=== PATIENT | female | born 1990 | race Caucasian/White ===

== ENCOUNTER 2016-06-06 05:59 | Emergency (ER) | payer OTHER ==
[~2016-06-06] VITALS: Ht 180.3 cm; Wt 104.8 kg
[~2016-06-06 05:59] MED LIST: DEPO150I IM; DICL75 PO; METH750T2 PO
[2016-06-06 06:04] VITALS: BP 128/85; PULSE 82; RESP 18; TEMP 99; O2SAT 100
[2016-06-06] MEDS ORDERED: HYDR-3533 PO (06:11)
[2016-06-06] MEDS ORDERED: AMOX500C PO (06:11)
--- NOTE | 2016-06-06 06:24 | PD ---
HPI Chief Complaint: Oral / Dental Pain or Problem Time Seen by Provider: 06:16 Travel History International Travel<30 days: No Contact w/Intl Traveler<30days: No Traveled to known affect area: No History of Present Illness HPI 25-year-old female presents to the emergency department by private transportation for evaluation of facial swelling and jaw pain. According the patient since approximately 1600 yesterday she started noticing some left mandibular dentition pain and swelling. Swelling has persisted and now is submandibular and moving towards the midline. Patient rates pain 6/10 in intensity. Patient has had no difficulty swallowing although does have jaw pain with attempted opening of the mouth. Patient denies any stridor or hoarseness. Patient's had no trauma or injury. No fever or chills. Patient is not diabetic. Last menstrual period was approximately one week ago; patient is 1 para 1; patient is not sexually active 8 months after from her spouse. Patient denies . Patient takes no medications on a regular basis and no prescription medications. PFSH Past Medical History Narrative Medical ; orthopedic injury; hand surgery; no tobacco use; nursing notes reviewed Medical History: Denies Significant Hx Musculoskeletal: Yes (LEFT TIB/FIB FX) Tetanus Vaccination: > 5 Years Influenza Vaccination: No ?: Not LMP: 05/18/16 : 2 Para: 1 Miscarriage: 1 Past Surgical History Other Surgery: Yes (LEFT HAND ) Social History Alcohol Use: No Tobacco Use: No Substance Use: No Allergies-Medications (Allergen,Severity, Reaction): Coded Allergies: No Known Allergies (Verified , 06/06/16) Reported Meds & Prescriptions Reported Meds & Active Scripts Active Reported Lortab (Hydrocodone-Acetaminophen) 5-325 Mg Tab 1 Tab PO ONCE PRN Amoxicillin 500 Mg Cap 500 Mg PO ONCE Review of Systems Except as stated in HPI: all other systems reviewed are Neg General / Constitutional: No: Fever HENT: Positive: Masses, Dental Difficulties, No: Congestion, Neck Stiffness, Neck Pain Cardiovascular: No: Chest Pain or Discomfort Respiratory: No: Shortness of Breath Gastrointestinal: No: Vomiting Genitourinary: No: Flank Pain Musculoskeletal: No: Myalgias, Arthralgias Skin: Positive Lumps (left face and submandibular), No Rash Neurologic: No: Weakness Psychiatric: No: Anxiety Hematologic/Lymphatic: No: Lymph Node Enlargement Physical Exam Narrative GENERAL: Well-developed well-nourished female in no acute distress no respiratory distress SKIN: Warm and dry. HEAD: Atraumatic. Normocephalic. EYES: Pupils equal and round. No scleral icterus. No injection or drainage. ENT: No nasal bleeding or discharge. Mucous membranes pink and moist. No trismus. Multiple dental caries, specifically affecting the #17,#18, and #19 dentition. Left mandible buccal gingival edema without fluctuance. Left submandibular soft tissue swelling with firmness and mild induration without redness warmth and does not cross midline. NECK: Trachea midline. No JVD. Supple no meningismus no nuchal rigidity CARDIOVASCULAR: Regular rate and rhythm. RESPIRATORY: No accessory muscle use. Clear to auscultation. Breath sounds equal bilaterally. NEUROLOGICAL: Awake and alert. No obvious cranial nerve deficits. Motor grossly within normal limits. Five out of 5 muscle strength in the arms and legs. Normal speech. PSYCHIATRIC: Appropriate mood and affect; insight and judgment normal. Data Data Last Documented VS Vital Signs Date Time Temp Pulse Resp B/P Pulse Ox O2 Delivery O2 Flow Rate FiO2 06/06/16 06:45 20 06/06/16 06:04 99.0 82 128/85 100 Orders Basic Metabolic Panel (Bmp) (06/06/16 06:16) Complete Blood Count With Diff (06/06/16 06:16) Blood Culture (06/06/16 06:16) Ct Soft Tiss Neck W Iv Cont (06/06/16 06:16) Iv Access Insert/Monitor (06/06/16 06:16) Clindamycin Inj (Cleocin Inj) (06/06/16 06:30) Sodium Chloride 0.9% Flush (Ns Flush) (06/06/16 06:30) Ketorolac Inj (Toradol Inj) (06/06/16 06:30) Labs Laboratory Tests Test 06/06/16 06:20 White Blood Count 12.7 TH/MM3 Red Blood Count 4.43 MIL/MM3 Hemoglobin 11.7 GM/DL Hematocrit 36.1 % Mean Corpuscular Volume 81.6 FL Mean Corpuscular Hemoglobin 26.4 PG Mean Corpuscular Hemoglobin 32.3 % Concent Red Cell Distribution Width 14.9 % Platelet Count 270 TH/MM3 Mean Platelet Volume 8.6 FL Neutrophils (%) (Auto) 71.6 % Lymphocytes (%) (Auto) 15.6 % Monocytes (%) (Auto) 10.2 % Eosinophils (%) (Auto) 0.5 % Basophils (%) (Auto) 2.1 % Neutrophils # (Auto) 9.0 TH/MM3 Lymphocytes # (Auto) 2.0 TH/MM3 Monocytes # (Auto) 1.3 TH/MM3 Eosinophils # (Auto) 0.1 TH/MM3 Basophils # (Auto) 0.3 TH/MM3 CBC Comment DIFF FINAL Differential Comment Sodium Level 141 MEQ/L Potassium Level 3.7 MEQ/L Chloride Level 107 MEQ/L Carbon Dioxide Level 24.8 MEQ/L Anion Gap 9 MEQ/L Blood Urea Nitrogen 5 MG/DL Creatinine 0.60 MG/DL Estimat Glomerular Filtration 122 ML/MIN Rate Random Glucose 95 MG/DL Calcium Level 8.7 MG/DL MDM Medical Decision Making Medical Screen Exam Complete: Yes Emergency Medical Condition: Yes Medical Record Reviewed: Yes Differential Diagnosis Dental caries, dental abscess, submandibular abscess, cellulitis, sialadenitis, dental fracture, mass Narrative Course IV access obtained specimens collected and sent for resulting patient administered clindamycin 900 mg IV, Toradol 30 mg IV; CT soft tissue neck with IV contrast ordered to evaluate for abscess. @7:15 AM care signed over to oncoming physician Dr. Bazan for follow-up of pending CT and patient disposition Diagnosis Primary Impression: Dental abscess Carol Tyson MD Jun 06, 2016 06:24
[2016-06-06] MEDS ORDERED: KETOROLAC TROMETHAMINE 30 MG/ML (IVP) VIAL IV PUSH ONE (06:30)
[2016-06-06] MEDS ORDERED: SODIUM CHLORIDE 0.9% FLUSH 5 ML FLUSH IVF PRN (06:30)
[2016-06-06] MEDS ORDERED: CLINDAMYCIN INJ 900 MG in SODIUM CHLORIDE 0.9% INJ 100 ML IV ONE (06:30)
[2016-06-06 06:39] LABS: BASOPHIL # 0.3 TH/MM3 (0-0.2); BASOPHIL % 2.1 % (0.0-2.0); EOSINOPHIL # 0.1 TH/MM3 (0-0.4); EOSINOPHIL % 0.5 % (0.0-4.0); HEMATOCRIT 36.1 % (35.0-46.0); LYMPH % 15.6 % (9.0-44.0); MEAN CELL VOLUME 81.6 FL (80.0-100.0); MEAN CORPUSCULAR HEMOGLOBIN 26.4 PG (27.0-34.0); MEAN CORPUSCULAR HGB CONC 32.3 % (32.0-36.0); MONO % 10.2 % (0.0-8.0); NEUT % 71.6 % (16.0-70.0); PLATELET COUNT 270 TH/MM3 (150-450); RED BLOOD COUNT 4.43 MIL/MM3 (4.00-5.30); RED CELL DISTRIBUTION WIDTH 14.9 % (11.6-17.2); WHITE BLOOD COUNT 12.7 TH/MM3 (4.0-11.0)
[2016-06-06 06:41] LABS: POTASSIUM 3.7 MEQ/L (3.5-5.1)
[2016-06-06 06:42] LABS: HEMO FLAGS DIFF FINAL
[2016-06-06 06:44] LABS: BICARBONATE 24.8 MEQ/L (21.0-32.0)
[2016-06-06] MEDS ORDERED: IOHEXOL 350 MG/ML 10 ML VIAL (for RAD DIAG) IV ONE (07:28)
--- NOTE | 2016-06-06 07:42 | RADHPO ---
EXAM DATE/TIME: 06/06/2016 07:15 [facility] COMPARISON: No previous studies available for comparison. INDICATIONS : Left sided submandibular swlling and pain. IV CONTRAST: 69 cc Omnipaque 350 (iohexol) IV RADIATION DOSE: 14.73 CTDIvol (mGy) MEDICAL HISTORY : None SURGICAL HISTORY : None. ENCOUNTER: Initial ACUITY: 2 days PAIN SCALE: 7/10 LOCATION: Left neck TECHNIQUE: Volumetric scanning of the neck was performed. Using automated exposure control and adjustment of th e mA and/or kV according to patient size, radiation dose was kept as low as reasonably achievable to obtain optimal diagnostic quality images. FINDINGS: NASOPHARYNX: The nasopharyngeal airway has a normal configuration. No mucosal thickening or mass is seen. OROPHARYNX: The intrinsic muscles of the tongue are symmetric. The tonsillar pillars are intact. The prevertebr al soft tissues are not thickened. LARYNX: The supraglottic, glottic, and infraglottic structures are intact. PARAPHARYNGEAL: The parapharyngeal space is intact. SALIVARY GLANDS: Left submandibular gland is mildly prominent. The parotid and right submandibular glands are intact. LYMPH NODES: No necrotic-appearing nodes. There are some scattered lymph nodes many which are small in size. The l argest in the left submandibular region measures 1.7 x 1.4 cm. On the right measures 1.5 x 1.3 cm THYROID: Homogeneous enhancement without evidence of nodule. BONES: Unremarkable. OTHER: There are some inflammatory changes along the left submandibular soft tissues. Left submandibular gla nd is mildly prominent in size. No stones are seen. There are some mildly prominent left-sided subman dibular lymph nodes likely reactive. No abscess identified. CONCLUSION: Left-sided facial/submandibular soft tissue swelling with some reactive borderline prominent lymph no denice. The left submandibular gland is mildly prominent. No abscess. No stones are seen. Javon Patrick MD on June 06, 2016 at 7:35 Board Certified Radiologist. This report was verified electronically.
[2016-06-06] MEDS ORDERED: CLIN1CAP5 PO (07:55)
--- NOTE | 2016-06-06 08:03 | PD ---
Data Data Last Documented VS Vital Signs Date Time Temp Pulse Resp B/P Pulse Ox O2 Delivery O2 Flow Rate FiO2 06/06/16 06:45 20 06/06/16 06:04 99.0 82 128/85 100 Orders Basic Metabolic Panel (Bmp) (06/06/16 06:16) Complete Blood Count With Diff (06/06/16 06:16) Blood Culture (06/06/16 06:16) Ct Soft Tiss Neck W Iv Cont (06/06/16 06:16) Iv Access Insert/Monitor (06/06/16 06:16) Clindamycin Inj (Cleocin Inj) (06/06/16 06:30) Sodium Chloride 0.9% Flush (Ns Flush) (06/06/16 06:30) Ketorolac Inj (Toradol Inj) (06/06/16 06:30) Iohexol 350 Inj (Omnipaque 350 Inj) (06/06/16 07:28) Labs Laboratory Tests Test 06/06/16 06:20 White Blood Count 12.7 TH/MM3 Red Blood Count 4.43 MIL/MM3 Hemoglobin 11.7 GM/DL Hematocrit 36.1 % Mean Corpuscular Volume 81.6 FL Mean Corpuscular Hemoglobin 26.4 PG Mean Corpuscular Hemoglobin 32.3 % Concent Red Cell Distribution Width 14.9 % Platelet Count 270 TH/MM3 Mean Platelet Volume 8.6 FL Neutrophils (%) (Auto) 71.6 % Lymphocytes (%) (Auto) 15.6 % Monocytes (%) (Auto) 10.2 % Eosinophils (%) (Auto) 0.5 % Basophils (%) (Auto) 2.1 % Neutrophils # (Auto) 9.0 TH/MM3 Lymphocytes # (Auto) 2.0 TH/MM3 Monocytes # (Auto) 1.3 TH/MM3 Eosinophils # (Auto) 0.1 TH/MM3 Basophils # (Auto) 0.3 TH/MM3 CBC Comment DIFF FINAL Differential Comment Sodium Level 141 MEQ/L Potassium Level 3.7 MEQ/L Chloride Level 107 MEQ/L Carbon Dioxide Level 24.8 MEQ/L Anion Gap 9 MEQ/L Blood Urea Nitrogen 5 MG/DL Creatinine 0.60 MG/DL Estimat Glomerular Filtration 122 ML/MIN Rate Random Glucose 95 MG/DL Calcium Level 8.7 MG/DL [facility] Supervised Visit with EVI: No Differential Diagnosis Dental infection, abscess, pharyngitis Narrative Course Case checked out to me by Dr. Tyson at 7 AM I have reviewed the entirety of the workup. She has white count 12 but otherwise normal metabolic profile. I reviewed the CT results which show no evidence of abscess or anything dangerous. No fluid collection to drain. She has some soft tissue swelling in the left mandible consistent with dental origin infection. I prescribed some clindamycin Recommend dental follow-up and primary care follow-up Diagnosis Primary Impression: Dental abscess Additional Instruction: The patient was advised to follow up with their physician and dentist and return if they worsen. Med/Other Pt SpecificInfo: Prescription(s) given Scripts Clindamycin 150 Mg Oek452 Mg PO Q8HR 7 Days Ref 0 Prov:Nadir Bazan MD 06/06/16 Disposition: 01 DISCHARGE HOME Condition: Stable Nadir Bazan MD Jun 06, 2016 08:03
[2016-06-06 08:10] VITALS: BP 104/68; PULSE 79; RESP 16; O2SAT 96
== END 2016-06-06 08:10 | disposition home or self-care (01) ==
LOC: PHED 05:59
DX: K04.7 Periapical abscess without sinus (principal); R22.0 Localized swelling, mass and lump, head; K08.89 Other specified disorders of teeth and supporting structures; Z87.39 Personal history of other diseases of the musculoskeletal system and connective tissue
CPT/HCPCS: 70491; 80048; 85025; 87040; 96365; 96375; 99284; J1885; Q9967

== ENCOUNTER 2016-06-06 21:39 | Inpatient (IN) | payer SELFPAY ==
[~2016-06-06] VITALS: Ht 180.3 cm; Wt 103.1 kg
[~2016-06-06 21:39] MED LIST changes: +AMOX500C PO; +CLIN1CAP5 PO; +HYDR-3533 PO
[2016-06-06 22:02] VITALS: BP 114/83; PULSE 102; RESP 18; TEMP 99.3; O2SAT 98
--- NOTE | 2016-06-06 22:27 | PD ---
HPI Chief Complaint: Oral / Dental Pain or Problem Time Seen by Provider: 22:21 Travel History International Travel<30 days: No Contact w/Intl Traveler<30days: No Traveled to known affect area: No History of Present Illness HPI 25-year-old female presents to the emergency department by private transportation for complaint of worsening left jaw and submandibular soft tissue swelling. Patient was noted to have left jaw pain and dental pain with some mild facial swelling since Monday evening around 4 PM. Patient noted progression of the soft tissue swelling was seen in the emergency department around 6 AM this morning which time her white count was 12,[address] soft tissue of the neck did not show any focal abscess. Patient received IV clindamycin and was discharged with prescription for clindamycin. Patient reports subjective fever and chills. Patient notes that she is having increasing swelling that seems to be extending to the midline and further down the anterior neck. With pain on coughing and closing of the mouth. No issue of difficulty with breathing or swallowing. No drooling. Patient reports pain 6-7/10 in intensity. Again patient denies and denies other concerns or complaints. PFSH Past Medical History Narrative Medical Orthopedic injuries with hand surgery; no tobacco use; nursing notes reviewed Musculoskeletal: Yes (LEFT TIB/FIB FX) Tetanus Vaccination: Unknown Influenza Vaccination: No ?: Not LMP: 05-18-16 : 2 Para: 1 Miscarriage: 1 Past Surgical History Other Surgery: Yes (LEFT HAND ) Social History Alcohol Use: No Tobacco Use: No Substance Use: No Allergies-Medications (Allergen,Severity, Reaction): Coded Allergies: No Known Allergies (Verified , 06/06/16) Reported Meds & Prescriptions Reported Meds & Active Scripts Active Clindamycin (Clindamycin HCl) 150 Mg Cap 300 Mg PO Q8HR 7 Days Review of Systems Except as stated in HPI: all other systems reviewed are Neg General / Constitutional: Positive: Fever (subjective), Chills HENT: Positive: Congestion, Neck Pain, Masses, Dental Difficulties Respiratory: No: Cough, Shortness of Breath Gastrointestinal: No: Vomiting Genitourinary: No: Flank Pain Musculoskeletal: No: Myalgias, Arthralgias Skin: No Rash Neurologic: No: Weakness Psychiatric: Positive: Anxiety Hematologic/Lymphatic: Positive: Lymph Node Enlargement Physical Exam Narrative GENERAL: Well-developed well-nourished female in no acute distress no respiratory distress no drooling no stridor or hoarseness. SKIN: Warm and dry. HEAD: Normocephalic. EYES: No scleral icterus. No injection or drainage. ENT mucous membranes moist airway is patent mild trismus soft tissue swelling of the buccal gingiva along the #17, #18 and #19 dentition; soft tissue swelling is noted to the left cheek and submandibular soft tissue with tenderness and firmness to palpation without fluctuance no midline involvement. NECK: Supple, trachea midline. No JVD or lymphadenopathy. CARDIOVASCULAR: Regular rate and rhythm without murmurs, gallops, or rubs. RESPIRATORY: Breath sounds equal bilaterally. No accessory muscle use. GASTROINTESTINAL: Abdomen soft, non-tender, nondistended. MUSCULOSKELETAL: No cyanosis, or edema. BACK: Nontender without obvious deformity. No CVA tenderness. Data Data Last Documented VS Vital Signs Date Time Temp Pulse Resp B/P Pulse Ox O2 Delivery O2 Flow Rate FiO2 06/06/16 23:00 77 18 100 Room Air 06/06/16 22:02 99.3 114/83 Orders Basic Metabolic Panel (Bmp) (06/06/16 22:21) Complete Blood Count With Diff (06/06/16 22:21) Blood Culture (06/06/16 22:21) Iv Access Insert/Monitor (06/06/16 22:21) Clindamycin Inj (Cleocin Inj) (06/06/16 22:30) Sodium Chloride 0.9% Flush (Ns Flush) (06/06/16 22:30) Ketorolac Inj (Toradol Inj) (06/06/16 22:30) Potassium Chloride (Kcl) (06/06/16 23:30) Admit Order (Ed Use Only) (06/06/16 ) ^ Saline Lock (06/06/16 23:38) Resp Oxygen Stephen C Titrat 1-4 L (06/06/16 ) ^ Notify Dr: Other (06/06/16 23:38) Sodium Chloride 0.9% Flush (Ns Flush) (06/07/16 09:00) Sodium Chloride 0.9% Flush (Ns Flush) (06/06/16 23:45) Dexamethasone Inj (Decadron Inj) (06/06/16 23:45) Admit To Inpatient (06/06/16 ) Vital Signs (Adult) Q4H (06/06/16 23:37) Activity Oob Ad Essence (06/06/16 23:37) [employer] / Telemetry .CONTINUOUS (06/06/16 23:37) Diet Npo (06/07/16 Breakfast) Sodium Chlor 0.9% 1000 Ml Inj (Ns 1000 M (06/06/16 23:37) Sodium Chloride 0.9% Flush (Ns Flush) (06/06/16 23:45) Sodium Chloride 0.9% Flush (Ns Flush) (06/07/16 09:00) Ondansetron Inj (Zofran Inj) (06/06/16 23:45) Basic Metabolic Panel (Bmp) (06/07/16 06:00) Complete Blood Count With Diff (06/07/16 06:00) Case Management Consult (06/06/16 23:37) Scd Bilateral/Knee High ROSA MARIA.BID (06/06/16 23:37) Naloxone Inj (Narcan Inj) (06/06/16 23:45) Inpatient Certification (06/06/16 ) Consult Oral, Facial Surgery (06/06/16 ) Dexamethasone Inj (Decadron Inj) (06/07/16 06:00) Pantoprazole Inj (Protonix Inj) (06/06/16 23:45) Labs Laboratory Tests Test 06/06/16 22:40 White Blood Count 12.9 TH/MM3 Red Blood Count 4.60 MIL/MM3 Hemoglobin 12.5 GM/DL Hematocrit 37.2 % Mean Corpuscular Volume 80.9 FL Mean Corpuscular Hemoglobin 27.1 PG Mean Corpuscular Hemoglobin 33.5 % Concent Red Cell Distribution Width 13.7 % Platelet Count 275 TH/MM3 Mean Platelet Volume 8.5 FL Neutrophils (%) (Auto) 75.1 % Lymphocytes (%) (Auto) 14.9 % Monocytes (%) (Auto) 8.5 % Eosinophils (%) (Auto) 0.1 % Basophils (%) (Auto) 1.4 % Neutrophils # (Auto) 9.7 TH/MM3 Lymphocytes # (Auto) 1.9 TH/MM3 Monocytes # (Auto) 1.1 TH/MM3 Eosinophils # (Auto) 0.0 TH/MM3 Basophils # (Auto) 0.2 TH/MM3 CBC Comment DIFF FINAL Differential Comment Sodium Level 140 MEQ/L Potassium Level 3.3 MEQ/L Chloride Level 105 MEQ/L Carbon Dioxide Level 25.9 MEQ/L Anion Gap 9 MEQ/L Blood Urea Nitrogen 4 MG/DL Creatinine 0.61 MG/DL Estimat Glomerular Filtration 120 ML/MIN Rate Random Glucose 89 MG/DL Calcium Level 8.9 MG/DL MDM Medical Decision Making Medical Screen Exam Complete: Yes Emergency Medical Condition: Yes Medical Record Reviewed: Yes Interpretation(s) Vital Signs Date Time Temp Pulse Resp B/P Pulse Ox O2 Delivery O2 Flow Rate FiO2 06/06/16 22:02 99.3 102 18 114/83 98 CBC & BMP Diagram 06/06/16 22:40 Differential Diagnosis Dental abscess, cellulitis, sialadenitis Narrative Course IV access obtained specimens collected and sent for resulting IV clindamycin administered CBC was automated differential total white cell count essentially unchanged patient noted to have mild hypokalemia patient's case discussed with on-call craniofacial surgeon Dr. Ely who recommends patient to be transferred to [facility] ongoing IV antibiotics with plan for surgical intervention of dental/submandibular abscess in a.m.; case discussed with on-call medicine physician will accept in transfer of care for admission. Physician Communication Physician Communication call placed to Dr Sullivan ---admit to [facility] to [facility] --plan surgical intervention in am; discussed with Dr Herron --will accept for [facility] adm. Diagnosis Primary Impression: Dental abscess Carol Tyson MD Jun 06, 2016 22:27
[2016-06-06] MEDS ORDERED: SODIUM CHLORIDE 0.9% FLUSH 5 ML FLUSH IVF PRN ×2 (22:30→23:45)
[2016-06-06] MEDS ORDERED: CLINDAMYCIN INJ 900 MG in SODIUM CHLORIDE 0.9% INJ 100 ML IV ONE (22:30)
[2016-06-06] MEDS ORDERED: KETOROLAC TROMETHAMINE 30 MG/ML (IVP) VIAL IV PUSH ONE (22:30)
[2016-06-06 22:56] LABS: AUTOMATED NEUTROPHIL # 9.7 TH/MM3 (1.8-7.7); BASOPHIL # 0.2 TH/MM3 (0-0.2); BASOPHIL % 1.4 % (0.0-2.0); EOSINOPHIL % 0.1 % (0.0-4.0); HEMATOCRIT 37.2 % (35.0-46.0); HEMO FLAGS DIFF FINAL; LYMPH % 14.9 % (9.0-44.0); LYMPHOCYTE # 1.9 TH/MM3 (1.0-4.8); MEAN CELL VOLUME 80.9 FL (80.0-100.0); MEAN CORPUSCULAR HEMOGLOBIN 27.1 PG (27.0-34.0); MEAN CORPUSCULAR HGB CONC 33.5 % (32.0-36.0); MONO % 8.5 % (0.0-8.0); NEUT % 75.1 % (16.0-70.0); PLATELET COUNT 275 TH/MM3 (150-450); RED CELL DISTRIBUTION WIDTH 13.7 % (11.6-17.2); WHITE BLOOD COUNT 12.9 TH/MM3 (4.0-11.0)
[2016-06-06 23:00] VITALS: PULSE 77; RESP 18; O2SAT 100
[2016-06-06 23:07] LABS: POTASSIUM 3.3 MEQ/L (3.5-5.1)
[2016-06-06 23:11] LABS: BICARBONATE 25.9 MEQ/L (21.0-32.0)
[2016-06-06] MEDS ORDERED: POTASSIUM CHLORIDE 20 MEQ CONTROLLED RELEASE TAB PO ONE (23:30)
[2016-06-06 23:40] VITALS: BP 116/72; PULSE 79; RESP 18; O2SAT 98
[2016-06-06] MEDS ORDERED: NALOXONE HCL 0.4 MG/ML AMP IV PRN (23:45)
[2016-06-06] MEDS ORDERED: ONDANSETRON HCL 4 MG/2 ML VIAL IVP PRN (23:45)
[2016-06-06] MEDS ORDERED: DEXAMETHASONE SOD PHOS 4 MG/ML VIAL IV PUSH ONE (23:45)
[2016-06-06] MEDS ORDERED: SODIUM CHLORIDE 0.9% FLUSH 5 ML FLUSH FLUSH PRN (23:45)
[2016-06-06] MEDS ORDERED: MORPHINE SULFATE 4 MG/ML INJ IV PUSH PRN (23:45)
[2016-06-07] VITALS (8 sets, daily range): BP systolic 105–132; BP diastolic 61–93; PULSE 70–94; RESP 16–20; TEMP 97.5–98.2; O2SAT 96–99
[2016-06-07] MEDS: PANTOPRAZOLE SODIUM 40 MG VIAL IV PUSH SCH ×2 (00:05→09:22)
[2016-06-07] MEDS: SODIUM CHLOR 0.9% 1000 ML INJ 1,000 ML IV SCH ×2 (00:06→04:46)
[2016-06-07] MEDS ORDERED: KETOROLAC TROMETHAMINE 30 MG/ML (IVP) VIAL IV PUSH PRN (02:00)
[2016-06-07] MEDS: DEXAMETHASONE SOD PHOS 4 MG/ML VIAL IV PUSH SCH ×2 (04:46→12:22)
[2016-06-07] MEDS: CLINDAMYCIN INJ 900 MG in SODIUM CHLORIDE 0.9% INJ 100 ML IV SCH ×2 (06:00→12:22)
[2016-06-07] MEDS: NS + KCL 20 MEQ INJ 1,000 ML IV SCH ×2 (07:45→19:45)
--- NOTE | 2016-06-07 08:10 | MB ---
cc: MONA SULLIVAN DMD DATE OF CONSULTATION June 07, 2016 REASON FOR CONSULTATION Dental pain/submandibular swelling. HISTORY OF PRESENT ILLNESS This is a 25-year-old female who for the last several days had been having pain in the left lower posterior molars. Then on Monday she began to have swelling in her face and into her neck. She came to the hospital and was discharged on clindamycin, was given IV clindamycin yesterday but then it began to get worse and so she came back to the ER yesterday evening. I have seen and examined this patient. She is alert, awake and oriented x 3, in no acute distress. Denies any fever, chills, nausea, vomiting, any shortness of breath or any difficulty breathing or any difficulty swallowing, but she does report painful swallowing and tender to touch. The patient has a private dentist but has not seen for awhile. PAST MEDICAL HISTORY Denied. ALLERGIES Denied. PAST SURGICAL HISTORY She reports left hand surgery. SOCIAL HISTORY Denies any alcohol, any tobacco or illicit drug use. EXAMINATION She has got a swelling on the left submandibular region. It is tender to palpation. Trachea is midline. No erythema that is noted. Cannot palpate a collection but it is swollen and tender to palpation. Intraorally has limited opening secondary to pain. There is decay noted on tooth number 18 and 19. 18 is the worst with a lot of broken tooth area that is noted. No gross elevation of floor of the mouth on the left side but there is tenderness to palpation in the floor of the mouth on the left side. No deviation of the uvula. No active pus that is noted at this time. She is sensitive to palpation on tooth #18 and 19. [address] STUD[address] CT scan of the soft tissue of the neck shows edema in the left submandibular region. Lymph node enlargements also noted bilaterally. I do not see any gross collection that is noted. Also appears to have showed decayed tooth 18 with a periapical radiolucency of #18. VITALS: Temperature 97.5, pulse is 70, respirations 16, blood pressure is 105/61, oxygen saturation 99%. LABORATORY DATA White count is 12.9, H&H is 12.5 and 37.2 with a platelets of 275. IMPRESSION AND PLAN This is a 25-year-old female with a longstanding history of decayed teeth, pain on the left mandibular region, other generalized decayed teeth noted also. Now presents with a left submandibular space infection, left facial edema, pain on tooth #18 and 19. Cellulitis. Appears to be secondary to otogenic regions. We will plan to take the patient to the main operating room for extraction of tooth #18 and 19 and any other necessary teeth, examination under anesthesia, I&D of the left submandibular space infection/cellulitis. The benefits, risks and indication of the procedure, procedure in detail and the options of no treatment were all discussed with this patient. The risks were not limited to any postop pain, infection, bleeding, damage to the adjacent teeth, soft tissue, hard tissue anesthesia, complications, numbness, recurrence of infection. All questions and concerns were addressed. Mona Sullivan DMD RRT/ANDERSON /7:44 AM /8:01 AM
[2016-06-07] MEDS: SODIUM CHLORIDE 0.9% FLUSH 5 ML FLUSH FLUSH SCH (08:19)
[2016-06-07] MEDS ORDERED: SODIUM CHLORIDE 0.9% FLUSH 5 ML FLUSH IVF SCH (09:00)
--- NOTE | 2016-06-07 09:59 | HHI.HP ---
[facility] No Primary Care Physician Admission Diagnosis (L) Dental/submandibular abscess Diagnoses: Chief Complaint: Tooth infection Travel History International Travel<30 Days: No Contact w/Intl Traveler <30 Da: No Traveled to Known Affected Are: No History of Present Illness 25-year-old female with no past medical history who presented with facial swelling. The patient states on Monday she began having left lower jaw swelling. The swelling continued to get worse, so she went to the ED yesterday morning for evaluation. She was prescribed clindamycin and recommended to follow-up with a dentist and was discharged. She states that she went home, and the swelling continued to get worse. She began having difficulty swallowing and problems breathing, so she presented back to the emergency department. Maxillofacial surgery was consulted and medicine was asked for admission. The patient denies any fevers or chills. Does have pain in the area of swelling. She states that he isn't having pain in her teeth since last fall, was supposed to have been removed, but the pain improved and she got busy and did not get them removed. Review of Systems Except as stated in HPI: all other systems reviewed are Neg Past Family Social History Past Medical History None Past Surgical History Left hand surgery Reported Medications None normally Allergies: Coded Allergies: No Known Allergies (Verified , 06/06/16) Active Ordered Medications Current Medications Medications (Trade) Dose Ordered Sig/Juanito Route Start Time Stop Time Status Last Admin (NS Flush) 2 ml UNSCH PRN FLUSH 06/06/16 23:45 (NS Flush) 2 ml BID FLUSH 06/07/16 09:00 (Zofran Inj) 4 mg Q6H PRN IVP 06/06/16 23:45 (Narcan Inj) 0.4 mg UNSCH PRN IV 06/06/16 23:45 (Decadron Inj) 4 mg Q6HR IV PUSH 06/07/16 06:00 06/07/16 04:46 Pantoprazole Sodium 40 mg 40 mg DAILY IV PUSH 06/06/16 23:45 06/07/16 09:22 (Cleocin Inj/NS Inj) 106 ml @ 212 mls/hr Q6HR IV 06/07/16 06:00 06/07/16 06:00 Ketorolac Tromethamine 15 mg 15 mg Q6H PRN IV PUSH 06/07/16 02:00 06/12/16 01:59 06/07/16 02:04 (NS + KCl 20 Meq Inj) 1,000 ml @ 100 mls/hr Q10H IV 06/07/16 07:45 06/07/16 07:45 Family History Mother has high blood pressure Maternal grandmother has heart problems Social History Denies alcohol, tobacco, or drug use Physical Exam Vital Signs Vital Signs Date Time Temp Pulse Resp B/P Pulse Ox O2 Delivery O2 Flow Rate FiO2 06/07/16 08:09 98.2 77 20 126/81 96 06/07/16 05:20 70 06/07/16 04:51 97.5 79 16 105/61 99 06/07/16 04:21 78 16 132/68 97 06/07/16 03:04 18 06/07/16 03:01 99 06/07/16 00:09 18 06/06/16 23:40 79 18 116/72 98 Room Air 06/06/16 23:00 77 18 100 Room Air 06/06/16 22:02 99.3 102 18 114/83 98 Physical Exam GENERAL: Well-developed well-nourished. In no acute distress. SKIN: Warm and dry. No lesions noted. HEENT: Normocephalic. Pupils equal and round. Left lower jaw and neck swelling , TTP. 2 left lower jaw posterior molars with lateral purulent drainage. Airway patent. CARDIOVASCULAR: Regular rate and rhythm. No murmur appreciated. RESPIRATORY: No accessory muscle use. Clear to auscultation. Breath sounds equal bilaterally. GASTROINTESTINAL: Abdomen soft, non-tender, nondistended. Bowel sounds x4. MUSCULOSKELETAL: No obvious deformities. No clubbing or cyanosis. No edema. NEUROLOGICAL: Awake and alert. No focal neurological deficits. Moves upper and lower extremities spontaneously. Normal speech. PSYCHIATRIC: Appropriate mood and affect; insight and judgment normal. Laboratory Laboratory Tests Test 06/06/16 22:40 White Blood Count 12.9 Red Blood Count 4.60 Hemoglobin 12.5 Hematocrit 37.2 Mean Corpuscular Volume 80.9 Mean Corpuscular Hemoglobin 27.1 Mean Corpuscular Hemoglobin 33.5 Concent Red Cell Distribution Width 13.7 Platelet Count 275 Mean Platelet Volume 8.5 Neutrophils (%) (Auto) 75.1 Lymphocytes (%) (Auto) 14.9 Monocytes (%) (Auto) 8.5 Eosinophils (%) (Auto) 0.1 Basophils (%) (Auto) 1.4 Neutrophils # (Auto) 9.7 Lymphocytes # (Auto) 1.9 Monocytes # (Auto) 1.1 Eosinophils # (Auto) 0.0 Basophils # (Auto) 0.2 CBC Comment DIFF FINAL Differential Comment Sodium Level 140 Potassium Level 3.3 Chloride Level 105 Carbon Dioxide Level 25.9 Anion Gap 9 Blood Urea Nitrogen 4 Creatinine 0.61 Estimat Glomerular Filtration 120 Rate Random Glucose 89 Calcium Level 8.9 Date/Time Procedure Status Source Growth 06/06/16 22:48 Aerobic Blood Culture Received Blood Peripheral Pending 06/06/16 22:48 Anaerobic Blood Culture Received Blood Peripheral Pending Result Diagram: 06/06/16 2240 06/06/16 2240 Assessment and Plan Problem List: (1) Dental abscess ICD Code: K04.7 Status: Acute Assessment and Plan 25-year-old female here with dental infection Facial cellulitis/dental abscess: Neck CT 06/06/16 showed left-sided facial submandibular soft tissue swelling with some reactive borderline prominent lymph nodes, no abscess was seen at that time. WBC 12 K and Tmax 99.3. Continue IV clindamycin. OMF surgery consulted, plan for dental extraction today. Continue IV Decadron for now for swelling. IV Toradol as needed for pain. IVF. Hypokalemia: Potassium 3.3. Given oral potassium in the ED. Potassium added to IVF. Monitor. DVT prophylaxis: SCDs Written by Juan Francisco De Jesus, acting as scribe for Dr. Mcgregor on 06/07/16 at 09:59. The documentation accurately reflects the work performed [id number] by me on at [id number]. Discussed Condition With Patient Juan Francisco De Jesus Jun 07, 2016 9:59 am Minnie Mcgregor DO Jun 07, 2016 4:45 pm
[2016-06-07 12:42] LABS: AUTOMATED NEUTROPHIL # 10.4 TH/MM3 (1.8-7.7); BASOPHIL % 0.2 % (0.0-2.0); HEMATOCRIT 37.6 % (35.0-46.0); HEMO FLAGS DIFF FINAL; LYMPHOCYTE # 0.7 TH/MM3 (1.0-4.8); MEAN CELL VOLUME 82.2 FL (80.0-100.0); MEAN CORPUSCULAR HEMOGLOBIN 26.7 PG (27.0-34.0); MEAN CORPUSCULAR HGB CONC 32.5 % (32.0-36.0); MONO % 2.9 % (0.0-8.0); NEUT % 90.9 % (16.0-70.0); PLATELET COUNT 256 TH/MM3 (150-450); RED BLOOD COUNT 4.57 MIL/MM3 (4.00-5.30); RED CELL DISTRIBUTION WIDTH 15.1 % (11.6-17.2); WHITE BLOOD COUNT 11.4 TH/MM3 (4.0-11.0)
[2016-06-07 13:10] LABS: BICARBONATE 24.7 MEQ/L (21.0-32.0); POTASSIUM 3.8 MEQ/L (3.5-5.1)
[2016-06-07] MEDS ORDERED: KETOROLAC TROMETHAMINE 60 MG/2 ML (IM) VIAL IM ONE (13:18)
[2016-06-07] MEDS ORDERED: ONDANSETRON HCL 4 MG/2 ML VIAL IV PUSH ONE (13:18)
[2016-06-07] MEDS ORDERED: NEOSTIGMINE 3 MG/3 ML SYR IV ONE (13:18)
[2016-06-07] MEDS ORDERED: PROPOFOL 200 MG/20 ML AMP IV ONE (13:18)
[2016-06-07] MEDS ORDERED: MICROFIBRILLAR COLLAGEN HEMOSTAT 1 GM PKT ONE (15:52)
[2016-06-07] MEDS ORDERED: LIDOCAINE 1%/EPINEPHrine 1:100,000 SOLN 30 ML VIAL ONE (15:52)
[2016-06-07] MEDS ORDERED: CHLORHEXIDINE GLUCONATE 0.12% 30 ML CUP ONE ×2 (15:52→16:57)
[2016-06-07] MEDS ORDERED: BACITRACIN TOP OINT 15 GM TUBE ONE (15:53)
[2016-06-07] MEDS ORDERED: LIDOCAINE 2%/EPINEPHrine 1:100,000 30ML MDV ONE (15:53)
[2016-06-07] MEDS ORDERED: FAMOTIDINE 20 MG/2 ML VIAL ONE (16:23)
[2016-06-07] MEDS ORDERED: DEXAMETHASONE SOD PHOS 4 MG/ML VIAL ONE (16:23)
[2016-06-07] MEDS ORDERED: ACETAMINOPHEN 1000 MG/100 ML VIAL IV ONE (16:25)
[2016-06-07] MEDS ORDERED: ceFAZolin INJ 1,000 MG VIAL IV ONE (16:36)
[2016-06-07] MEDS ORDERED: MIDAZOLAM HCL 2 MG/2 ML VIAL ONE (17:48)
[2016-06-07] MEDS ORDERED: fentaNYL CITRATE 250 MCG/5 ML AMP ONE (17:49)
--- NOTE | 2016-06-07 17:53 | HHI.PR ---
Immediate Post Op Note Procedure Date: Jun 07, 2016 Pre Op Diagnosis: decayed broken teeth/ 18/19 left submandibular edema/infection/ cellulitis/abscess left mandible/neck Post Op Diagnosis: geetha Surgeon: Willy Sullivan Medical Billing Coordinator(s): lino barnes Procedure: surgical extraction of teeth #18/19 I & D left posterior mandible abscess, intraorally, and left submandibular space edema/infection exam under anesthesia Findings: pus noted left post lateral mandible, with black appearing areas of pus Complications: none Specimen(s) removed: pus - sent for culture Estimated blood loss: minimal Anesthesia: General, Local (2 %lidocaine with 1:100,000 epi approx 6 cc) Drains: [place] (1/4 inch marco antonio drain x4 - 2 left neck and 2 intraorally) Patient to: PACU Patient Condition: Good Date/Time of Procedure: SEE SURGICAL CARE RECORD Willy Sullivan DMD Jun 07, 2016 17:53
[2016-06-07] MEDS ORDERED: DO NOT ADM ANY ANTICOAGULANT DRUGS XX PRN (18:30)
[2016-06-07] MEDS ORDERED: MORPHINE SULFATE 4 MG/ML INJ IV PRN (18:30)
[2016-06-07] MEDS: methylPREDNISolone SOD SUCC 125 MG/2 ML VIAL IV SCH (19:49)
[2016-06-07] MEDS: AMPICILLIN/SULBAC 3 GM/NS 100 ML IV SCH ×2 (19:52)
[2016-06-07] MEDS: ACETAMINOPHEN 325MG/HYDROcodone 7.5MG/15ML UDC PO PRN (22:42)
[2016-06-08] VITALS: BP 116/64; PULSE 77; RESP 16; TEMP 97.4; O2SAT 96
[2016-06-08] MEDS: methylPREDNISolone SOD SUCC 125 MG/2 ML VIAL IV SCH (02:00)
[2016-06-08 04:00] VITALS: BP 109/74; PULSE 64; RESP 16; TEMP 97.4; O2SAT 98
[2016-06-08] MEDS: AMPICILLIN/SULBAC 3 GM/NS 100 ML IV SCH ×6 (04:09→21:21)
[2016-06-08] MEDS: ACETAMINOPHEN 325MG/HYDROcodone 7.5MG/15ML UDC PO PRN (04:28)
[2016-06-08 07:50] VITALS: BP 107/68; PULSE 64; RESP 20; TEMP 96.3; O2SAT 98
--- NOTE | 2016-06-08 07:51 | HHI.PR ---
Subjective Remarks pod 1, s/p extraction teeth # 18/19 and I&D left post.mandible/submandibular space infection pt seen and examined this morning, nurse at bedside AAOx3, NAD, tolerating po well,ambulating, denies f/c/n/v/sob/difficulty swallowing pt states she does not want very strong narcotic pain med, prefers Tylenol Objective Vital Signs Date Time Temp Pulse Resp B/P Pulse Ox O2 Delivery O2 Flow Rate FiO2 06/08/16 04:00 97.4 64 16 109/74 98 06/08/16 00:00 97.4 77 16 116/64 96 06/07/16 21:09 97.7 94 18 129/93 96 06/07/16 19:30 82 14 135/78 97 Room Air 06/07/16 18:30 97.0 66 14 127/77 97 Room Air 06/07/16 18:15 76 14 144/74 97 Room Air 06/07/16 18:00 67 14 131/73 97 Room Air 06/07/16 17:45 76 14 127/78 96 Room Air 06/07/16 17:39 97.2 86 14 130/72 98 Room Air 06/07/16 11:42 97.9 77 20 124/83 97 06/07/16 11:28 79 06/07/16 08:09 98.2 77 20 126/81 96 I/O 06/07/16 06/07/16 06/07/16 06/08/16 06/08/16 06/08/16 07:00 15:00 23:00 07:00 15:00 23:00 Intake Total 900 ml 200 ml Output Total 20 ml Balance 880 ml 200 ml Intake Oral 200 ml 200 ml IV Total 100 ml Other 600 ml Output Estimated Blood Loss 20 ml # Voids 1 2 # Bowel Movements 0 0 Result Diagram: 06/07/16 1229 06/07/16 1229 Objective Remarks neck softer, decrease in edema, dressing clean, [place] drains in place x 2 no erythema, no gross tenderness, trach midline intraorally, increase in mouth opening [address], extraction sites/i I & D sites stable wound margins well approximated, sutures intact tissues pink/well perfused no elevation floor of mouth/ tongue/ no deviation of uvula hemostatic, no drainage noted afebrile, wbc slight decrease blood culture - no growth intraoral culture pending Assessment and Plan Assessment and Plan pod 1, s/p extraction teeth # 18/19 and I&D left post.mandible/submandibular space infection discontinue morphine/hydrocodone 7.5/325 Tylenol 650 mg and hydrocodone 5/325 prn pain advance to mechanically soft diet will follow Willy Sullivan DMD Jun 08, 2016 07:51
[2016-06-08] MEDS ORDERED: methylPREDNISolone ACETATE 80 MG/ML VIAL IM ONE (08:00)
[2016-06-08] MEDS: SODIUM CHLORIDE 0.9% FLUSH 5 ML FLUSH FLUSH SCH ×3 (09:00→21:22)
[2016-06-08] MEDS: ACETAMINOPHEN 325 MG TAB PO PRN (09:44)
[2016-06-08] MEDS: PANTOPRAZOLE SODIUM 40 MG VIAL IV PUSH SCH (09:45)
[2016-06-08] MEDS: NS + KCL 20 MEQ INJ 1,000 ML IV SCH ×3 (09:49→21:22)
--- NOTE | 2016-06-08 10:18 | HHI.PR ---
Subjective Remarks Follow-up for facial cellulitis Facial/submandibular swelling a lot better status post surgery yesterday, a febrile. Pain is controlled, no nausea or vomiting. Objective Vitals Vital Signs Date Time Temp Pulse Resp B/P Pulse Ox O2 Delivery O2 Flow Rate FiO2 06/08/16 07:50 96.3 64 20 107/68 98 06/08/16 04:00 97.4 64 16 109/74 98 06/08/16 00:00 97.4 77 16 116/64 96 06/07/16 21:09 97.7 94 18 129/93 96 06/07/16 19:30 82 14 135/78 97 Room Air 06/07/16 18:30 97.0 66 14 127/77 97 Room Air 06/07/16 18:15 76 14 144/74 97 Room Air 06/07/16 18:00 67 14 131/73 97 Room Air 06/07/16 17:45 76 14 127/78 96 Room Air 06/07/16 17:39 97.2 86 14 130/72 98 Room Air 06/07/16 11:42 97.9 77 20 124/83 97 06/07/16 11:28 79 I/O 06/07/16 06/07/16 06/07/16 06/08/16 06/08/16 06/08/16 07:00 15:00 23:00 07:00 15:00 23:00 Intake Total 900 ml 200 ml Output Total 20 ml Balance 880 ml 200 ml Intake Oral 200 ml 200 ml IV Total 100 ml Other 600 ml Output Estimated Blood Loss 20 ml # Voids 1 2 # Bowel Movements 0 0 Result Diagram: 06/07/16 1229 06/07/16 1229 Objective Remarks GENERAL: Well-developed well-nourished. In no acute distress. SKIN: Warm and dry. No lesions noted. HEENT: Normocephalic. Pupils equal and round. Left lower jaw and neck swelling better, mildly tender, no erythema, status post surgery, drain in place. No drainage. Dressings in place. CARDIOVASCULAR: Regular rate and rhythm. No murmur appreciated. RESPIRATORY: No accessory muscle use. Clear to auscultation. Breath sounds equal bilaterally. GASTROINTESTINAL: Abdomen soft, non-tender, nondistended. Bowel sounds x4. MUSCULOSKELETAL: No obvious deformities. No clubbing or cyanosis. No edema. NEUROLOGICAL: Awake and alert. No focal neurological deficits. Moves upper and lower extremities spontaneously. Normal speech. PSYCHIATRIC: Appropriate mood and affect; insight and judgment normal. A/P Problem List: (1) Dental abscess ICD Code: K04.7 Status: Acute Assessment and Plan 25-year-old female here with dental infection Facial cellulitis/dental abscess: Neck CT 06/06/16 showed left-sided facial submandibular soft tissue swelling with some reactive borderline prominent lymph nodes, no abscess was seen at that time. Surgery consulted, status post dental extraction and drainage of abscess, continue IV clindamycin and Decadron , continue Tylenol for pain. Follow-up culture results. CBC and BMP Hypokalemia: Potassium 3.3. Given oral potassium in the ED. Potassium added to IVF. Monitor. DVT prophylaxis: SCDs Discharge Planning Discharge tomorrow if okay with surgery. Eder Mustafa MD Jun 08, 2016 10:18
[2016-06-08 11:50] VITALS: BP 119/59; PULSE 82; RESP 20; TEMP 96.9; O2SAT 100
[2016-06-08 15:50] VITALS: BP 132/86; PULSE 80; RESP 20; TEMP 97.1; O2SAT 95
[2016-06-08 20:00] VITALS: BP 121/69; PULSE 80; RESP 16; TEMP 98.3; O2SAT 97
[2016-06-09 00:03] VITALS: BP 107/61; PULSE 69; RESP 16; TEMP 98.7; O2SAT 97
[2016-06-09] MEDS: AMPICILLIN/SULBAC 3 GM/NS 100 ML IV SCH ×6 (03:27→20:00)
[2016-06-09] MEDS: ACETAMINOPHEN 325 MG TAB PO PRN ×2 (03:33→19:16)
[2016-06-09 04:00] VITALS: BP 113/81; PULSE 86; RESP 16; TEMP 98.1; O2SAT 97
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
--- NOTE | 2016-06-09 07:14 | HHI.PR ---
Subjective Remarks pod 2, s/p extraction teeth # 18/19 and I&D left post.mandible/submandibular space infection pt seen and examined this morning, AAOx3, NAD, tolerating po well,ambulating, denies f/c/n/v/sob/difficulty swallowing wants to go home Objective Vital Signs Date Time Temp Pulse Resp B/P Pulse Ox O2 Delivery O2 Flow Rate FiO2 06/09/16 04:00 98.1 86 16 113/81 97 06/09/16 00:03 98.7 69 16 107/61 97 06/08/16 20:00 98.3 80 16 121/69 97 06/08/16 15:50 97.1 80 20 132/86 95 06/08/16 11:50 96.9 82 20 119/59 100 06/08/16 07:50 96.3 64 20 107/68 98 I/O 06/08/16 06/08/16 06/08/16 06/09/16 06/09/16 06/09/16 07:00 15:00 23:00 07:00 15:00 23:00 Intake Total 200 ml 1812 ml 931 ml 300 ml Balance 200 ml 1812 ml 931 ml 300 ml Intake Oral 200 ml 422 ml 300 ml 300 ml IV Total 1390 ml 631 ml # Voids 2 2 2 32 # Bowel Movements 0 0 0 0 Result Diagram: 06/07/16 1229 06/07/16 1229 Objective Remarks neck softer, significant decrease in face/neck edema, dressing clean, [place] drains in place x 2 no erythema, no gross tenderness, trach midline intraorally, continued increase in mouth opening [address] [place] [address], extraction sites/i I & D sites stable wound margins well approximated, sutures intact tissues pink/well perfused no elevation floor of mouth/ tongue/ no deviation of uvula hemostatic, no drainage noted afebrile, wbc slight decrease blood culture - no growth intraoral culture pending , no fungi, afb final pending Assessment and Plan Assessment and Plan pod 2, s/p extraction teeth # 18/19 and I&D left post.mandible/submandibular space infection improving s/p surgical/abx intervention advance to regular diet am labs pending final micro pending removed all 4 drains plan for d/c to home tomorrow will follow Willy Sullivan DMD Jun 09, 2016 07:14
[2016-06-09] MEDS: ACETAMINOPHEN/HYDROcodone 325 MG/5 MG TAB PO PRN (07:23)
[2016-06-09 07:50] VITALS: BP 131/87; PULSE 66; RESP 20; TEMP 98; O2SAT 98
[2016-06-09 08:22] LABS: AUTOMATED NEUTROPHIL # 5.5 TH/MM3 (1.8-7.7); BASOPHIL % 0.5 % (0.0-2.0); EOSINOPHIL % 0.2 % (0.0-4.0); HEMATOCRIT 31.9 % (35.0-46.0); HEMO FLAGS DIFF FINAL; LYMPH % 30.6 % (9.0-44.0); LYMPHOCYTE # 2.7 TH/MM3 (1.0-4.8); MEAN CELL VOLUME 83.5 FL (80.0-100.0); MEAN CORPUSCULAR HEMOGLOBIN 27.4 PG (27.0-34.0); MEAN CORPUSCULAR HGB CONC 32.8 % (32.0-36.0); MONO % 6.6 % (0.0-8.0); NEUT % 62.1 % (16.0-70.0); PLATELET COUNT 243 TH/MM3 (150-450); RED BLOOD COUNT 3.83 MIL/MM3 (4.00-5.30); RED CELL DISTRIBUTION WIDTH 14.9 % (11.6-17.2); WHITE BLOOD COUNT 8.9 TH/MM3 (4.0-11.0)
[2016-06-09 08:35] LABS: BICARBONATE 25.9 MEQ/L (21.0-32.0); POTASSIUM 4.1 MEQ/L (3.5-5.1)
[2016-06-09] MEDS: NS + KCL 20 MEQ INJ 1,000 ML IV SCH (08:45)
[2016-06-09] MEDS: PANTOPRAZOLE SODIUM 40 MG VIAL IV PUSH SCH (08:45)
[2016-06-09] MEDS: SODIUM CHLORIDE 0.9% FLUSH 5 ML FLUSH FLUSH SCH ×2 (08:46→21:00)
[2016-06-09 11:50] VITALS: BP 130/80; PULSE 69; RESP 20; TEMP 98.3; O2SAT 99
--- NOTE | 2016-06-09 14:40 | HHI.PR ---
Subjective Remarks Follow-up for odontogenic abscess Pain is controlled, minimal, tolerating soft diet, drains have been removed today. No overnight events. Objective Vitals Vital Signs Date Time Temp Pulse Resp B/P Pulse Ox O2 Delivery O2 Flow Rate FiO2 06/09/16 11:50 98.3 69 20 130/80 99 06/09/16 07:50 98.0 66 20 131/87 98 06/09/16 04:33 16 06/09/16 04:00 98.1 86 16 113/81 97 06/09/16 00:03 98.7 69 16 107/61 97 06/08/16 20:00 98.3 80 16 121/69 97 06/08/16 15:50 97.1 80 20 132/86 95 I/O 06/08/16 06/08/16 06/08/16 06/09/16 06/09/16 06/09/16 07:00 15:00 23:00 07:00 15:00 23:00 Intake Total 200 ml 1812 ml 931 ml 1227 ml Balance 200 ml 1812 ml 931 ml 1227 ml Intake Oral 200 ml 422 ml 300 ml 300 ml IV Total 1390 ml 631 ml 927 ml # Voids 2 2 2 32 # Bowel Movements 0 0 0 0 Result Diagram: 06/09/16 0711 06/09/16 0711 Objective Remarks GENERAL: Well-developed well-nourished. In no acute distress. SKIN: Warm and dry. No lesions noted. HEENT: Normocephalic. Pupils equal and round. Left lower jaw and neck swelling better, dressings in place, drain has been removed. CARDIOVASCULAR: Regular rate and rhythm. No murmur appreciated. RESPIRATORY: No accessory muscle use. Clear to auscultation. Breath sounds equal bilaterally. GASTROINTESTINAL: Abdomen soft, non-tender, nondistended. Bowel sounds x4. MUSCULOSKELETAL: No obvious deformities. No clubbing or cyanosis. No edema. NEUROLOGICAL: Awake and alert. No focal neurological deficits. Moves upper and lower extremities spontaneously. Normal speech. PSYCHIATRIC: Appropriate mood and affect; insight and judgment normal. A/P Problem List: (1) Dental abscess ICD Code: K04.7 Status: Acute Assessment and Plan 25-year-old female here with dental infection Facial cellulitis/dental abscess: Neck CT 06/06/16 showed left-sided facial submandibular soft tissue swelling with some reactive borderline prominent lymph nodes, no abscess was seen at that time. Surgery consulted, status post dental extraction and drainage of abscess, drain removed today, continue IV clindamycin and Decadron, continue Tylenol for pain. Cultures negative to date. CBC stable. Switch clindamycin to oral tomorrow. Patient may shower, continue to advance diet Hypokalemia: Potassium 3.3. Given oral potassium in the ED. Potassium added to IVF. Monitor. DVT prophylaxis: SCDs Discharge Planning Discharge tomorrow if okay with surgery. Eder Mustafa MD Jun 09, 2016 14:40
--- NOTE | 2016-06-09 14:43 | HHI.DCPOC ---
Discharge Care Plan Diagnosis: (1) Dental abscess Goals to Promote Your Health * To prevent worsening of your condition and complications * To maintain your health at the optimal level Directions to Meet Your Goals Take your medications as prescribed Follow your dietary instruction Follow activity as directed Keep your appointments as scheduled Take your immunizations and boosters as scheduled If your symptoms worsen call your PCP, if no PCP go to Urgent Care Center or Emergency Room Smoking is Dangerous to Your Health. Avoid second hand smoke Call the 24-hour hour crisis hotline for domestic abuse at Eder Mustafa MD Jun 09, 2016 14:43
--- NOTE | 2016-06-09 14:45 | HHI.DS ---
Discharge Summary Admission Date Jun 06, 2016 at 23:39 Discharge Date: Jun 10, 2016 Admitting Diagnosis (L) Dental/submandibular abscess (1) Dental abscess ICD Code: K04.7 Procedures Incision and drainage of dental abscess Brief History - From Admission 25-year-old female with no past medical history who presented with facial swelling. The patient states on Monday she began having left lower jaw swelling. The swelling continued to get worse, so she went to the ED yesterday morning for evaluation. She was prescribed clindamycin and recommended to follow-up with a dentist and was discharged. She states that she went home, and the swelling continued to get worse. She began having difficulty swallowing and problems breathing, so she presented back to the emergency department. Maxillofacial surgery was consulted and medicine was asked for admission. The patient denies any fevers or chills. Does have pain in the area of swelling. She states that he isn't having pain in her teeth since last fall, was supposed to have been removed, but the pain improved and she got busy and did not get them removed. CBC/BMP: 06/09/16 0711 06/09/16 0711 Significant Findings Laboratory Tests Test 06/06/16 06/07/16 06/09/16 22:40 12:29 07:11 White Blood Count 12.9 TH/MM3 11.4 TH/MM3 (4.0-11.0) (4.0-11.0) Neutrophils (%) (Auto) 75.1 % 90.9 % (16.0-70.0) (16.0-70.0) Monocytes (%) (Auto) 8.5 % (0.0-8.0) Neutrophils # (Auto) 9.7 TH/MM3 10.4 TH/MM3 (1.8-7.7) (1.8-7.7) Monocytes # (Auto) 1.1 TH/MM3 (0-0.9) Potassium Level 3.3 MEQ/L (3.5-5.1) Blood Urea Nitrogen 4 MG/DL (7-18) 6 MG/DL (7-18) Mean Corpuscular Hemoglobin 26.7 PG (27.0-34.0) Lymphocytes (%) (Auto) 6.0 % (9.0-44.0) Lymphocytes # (Auto) 0.7 TH/MM3 (1.0-4.8) Red Blood Count 3.83 MIL/MM3 (4.00-5.30) Hemoglobin 10.5 GM/DL (11.6-15.3) Hematocrit 31.9 % (35.0-46.0) Chloride Level 109 MEQ/L (98-107) Calcium Level 8.2 MG/DL (8.5-10.1) PE at Discharge GENERAL: Well-developed well-nourished. In no acute distress. SKIN: Warm and dry. No lesions noted. HEENT: Normocephalic. Pupils equal and round. Left lower jaw and neck swelling better, dressings in place, drain has been removed. CARDIOVASCULAR: Regular rate and rhythm. No murmur appreciated. RESPIRATORY: No accessory muscle use. Clear to auscultation. Breath sounds equal bilaterally. GASTROINTESTINAL: Abdomen soft, non-tender, nondistended. Bowel sounds x4. MUSCULOSKELETAL: No obvious deformities. No clubbing or cyanosis. No edema. NEUROLOGICAL: Awake and alert. No focal neurological deficits. Moves upper and lower extremities spontaneously. Normal speech. PSYCHIATRIC: Appropriate mood and affect; insight and judgment normal. Hospital Course This is a 24-year-old female who presented with facial cellulitis and dental abscess. Upon ED evaluation, neck CT 06/06/16 showed left-sided facial submandibular soft tissue swelling with some reactive borderline prominent lymph nodes, no abscess was seen at that time. Patient was empirically started on clindamycin switch to Unasyn. She was also started on Decadron Maxillofacial Surgery consulted, status post dental extraction and drainage of abscess, drain removed 06/08/16. Cellulitis and swelling continued to improve, pink and was controlled with Tylenol. Diet was advanced which patient tolerated well. She'll be discharged once cleared by maxillofacial surgery on Augmentin to finish 1 week of treatment and follow-up with maxillofacial surgery as outpatient. Pt Condition on Discharge: Good Discharge Disposition: Discharge Home Discharge Time: <= 30 minutes Discharge Instructions Follow up Referrals: Oral Maxillary Surgery - 1 Week with Willy Sullivan DMD New Medications: Amoxicillin-Clavulanate (Augmentin) 875-125 mg Tab 24 MG PO BID not for use in CrCl <30 ml/min. Infection #10 Ref 0 TAB Eder Mustafa MD Jun 09, 2016 14:45
[2016-06-09 15:50] VITALS: BP 135/83; PULSE 70; RESP 20; TEMP 97.4; O2SAT 99
[2016-06-09 20:00] VITALS: BP 133/89; PULSE 86; RESP 16; TEMP 96.5; O2SAT 98
[2016-06-10 00:11] VITALS: BP 127/87; PULSE 66; RESP 16; TEMP 98.3; O2SAT 98
[2016-06-10] MEDS: ACETAMINOPHEN/HYDROcodone 325 MG/5 MG TAB PO PRN (00:58)
[2016-06-10] MEDS: AMPICILLIN/SULBAC 3 GM/NS 100 ML IV SCH ×2 (03:11)
[2016-06-10 05:10] VITALS: BP 115/79; PULSE 60; RESP 16; TEMP 97.6; O2SAT 96
--- NOTE | 2016-06-10 07:35 | HHI.PR ---
Subjective Remarks pod 3, s/p extraction teeth # 18/19 and I&D left post.mandible/submandibular space infection pt seen and examined this morning, no complaints AAOx3, NAD, tolerating po well,ambulating, denies f/c/n/v/sob/difficulty swallowing wants to go home Objective Vital Signs Date Time Temp Pulse Resp B/P Pulse Ox O2 Delivery O2 Flow Rate FiO2 06/10/16 05:10 97.6 60 16 115/79 96 06/10/16 02:08 20 06/10/16 01:02 19 06/10/16 00:11 98.3 66 16 127/87 98 06/09/16 20:00 96.5 86 16 133/89 98 06/09/16 15:50 97.4 70 20 135/83 99 06/09/16 11:50 98.3 69 20 130/80 99 06/09/16 07:50 98.0 66 20 131/87 98 I/O 06/09/16 06/09/16 06/09/16 06/10/16 06/10/16 06/10/16 07:00 15:00 23:00 07:00 15:00 23:00 Intake Total 1227 ml 940 ml 1263 ml 250 ml Balance 1227 ml 940 ml 1263 ml 250 ml Intake Oral 300 ml 940 ml 400 ml 250 ml IV Total 927 ml 863 ml # Voids 32 4 2 2 # Bowel Movements 0 0 0 0 Result Diagram: 06/09/16 0711 06/09/16 0711 Objective Remarks neck softer, significant decrease in face/neck edema, dressing clean no erythema, no gross tenderness, trach midline intraorally, continued increase in mouth opening, opening to almost full with little discomfort wound margins well approximated, sutures intact tissues pink/well perfused no elevation floor of mouth/ tongue/ no deviation of uvula hemostatic, no drainage noted afebrile, wbc 8.9 blood culture - no growth intraoral culture pending , no fungi/afb GRAM STAIN Final 06/08/16-0911 MODERATE WBC'S MODERATE MIXED ARMANDO WITH NO PREDOMINANT MORPHOLOGY WOUND CULTURE Preliminary 06/09/16-1151 HEAVY GROWTH NORMAL ORAL ARMANDO CONSISTING OF NEISSERIA SPECIES, HAEMOPHILUS PARAINFLUENZAE, VIRIDANS STREPTOCOCCUS GRP, AND EIKENELLA CORRODENS (PRESUMPTIVE ID) - NO FURTHER WORKUP RULING OUT ANAEROBES Assessment and Plan Assessment and Plan pod 3, s/p extraction teeth # 18/19 and I&D left post.mandible/submandibular space infection improving s/p surgical/abx intervention advance to regular diet afebrile, wbc 8.9 ok to d/c from oms standpoint f/up [address] sullivan [phone] regular diet jaw opening exercises shown no drinking with straw Willy Sullivan DMD Jun 10, 2016 07:35
[2016-06-10 08:00] VITALS: BP 137/94; PULSE 63; RESP 20; TEMP 97.3; O2SAT 97
[2016-06-10] MEDS ORDERED: HYDR-3516 PO ×2 (08:43→08:54)
[2016-06-10] MEDS ORDERED: AUGM875T PO (08:43)
--- NOTE | 2016-06-10 08:59 | HHI.PR ---
Subjective Remarks The patient was feeling well and wanted to go home. She was tolerating her breakfast. She said she saw the oral facial surgeon earlier. She understands what was recommended. She had no acute complaints at this time. Objective Vitals Vital Signs Date Time Temp Pulse Resp B/P Pulse Ox O2 Delivery O2 Flow Rate FiO2 06/10/16 08:00 97.3 63 20 137/94 97 06/10/16 05:10 97.6 60 16 115/79 96 06/10/16 02:08 20 06/10/16 01:02 19 06/10/16 00:11 98.3 66 16 127/87 98 06/09/16 20:00 96.5 86 16 133/89 98 06/09/16 15:50 97.4 70 20 135/83 99 06/09/16 11:50 98.3 69 20 130/80 99 I/O 06/09/16 06/09/16 06/09/16 06/10/16 06/10/16 06/10/16 07:00 15:00 23:00 07:00 15:00 23:00 Intake Total 1227 ml 940 ml 1263 ml 250 ml Balance 1227 ml 940 ml 1263 ml 250 ml Intake Oral 300 ml 940 ml 400 ml 250 ml IV Total 927 ml 863 ml # Voids 32 4 2 2 # Bowel Movements 0 0 0 0 Result Diagram: 06/09/16 0711 06/09/16 0711 Objective Remarks GENERAL: Well-developed well-nourished. In no acute distress. SKIN: Warm and dry. No lesions noted. HEENT: Normocephalic. Pupils equal and round. Left lower jaw and neck swelling better, dressings in place, drain has been removed. CARDIOVASCULAR: Regular rate and rhythm. No murmur appreciated. RESPIRATORY: No accessory muscle use. Clear to auscultation. Breath sounds equal bilaterally. GASTROINTESTINAL: Abdomen soft, non-tender, nondistended. Bowel sounds x4. MUSCULOSKELETAL: No obvious deformities. No clubbing or cyanosis. No edema. NEUROLOGICAL: Awake and alert. No focal neurological deficits. Moves upper and lower extremities spontaneously. Normal speech. PSYCHIATRIC: Appropriate mood and affect; insight and judgment normal. Procedures Incision and drainage of dental abscess Medications and IVs Current Medications Medications (Trade) Dose Ordered Sig/Juanito Route Start Time Stop Time Status Last Admin (NS Flush) 2 ml UNSCH PRN FLUSH 06/06/16 23:45 (NS Flush) 2 ml BID FLUSH 06/07/16 09:00 06/09/16 08:46 (Zofran Inj) 4 mg Q6H PRN IVP 06/06/16 23:45 (Narcan Inj) 0.4 mg UNSCH PRN IV 06/06/16 23:45 (Tylenol) 650 mg Q8H PRN PO 06/08/16 08:30 06/09/16 19:16 (Radnor 5-325 Mg) 1 tab Q8H PRN PO 06/08/16 08:30 06/10/16 00:58 (Protonix) 40 mg DAILY PO 06/10/16 09:00 (Augmentin) 875 mg Q12HR PO 06/10/16 09:00 A/P Problem List: (1) Dental abscess ICD Code: K04.7 Status: Acute Assessment and Plan Facial cellulitis/dental abscess: Neck CT 06/06/16 showed left-sided facial submandibular soft tissue swelling with some reactive borderline prominent lymph nodes, no abscess was seen at that time. Surgery was consulted, status post dental extraction and drainage of abscess, drain removed. She was continued on IV clindamycin and Decadron. She was continued on pain control. Cultures negative to date (06/10). CBC stable. Switch clindamycin to oral Augmentin to complete a course. Her diet was advanced. She will follow up with oral surgery in one week. Hypokalemia: Potassium 3.3. Given oral potassium in the ED. Potassium added to IVF. Monitor. Resolved. Anemia: May be s/t surgery and fluids. Stable. Outpt follow-up. DVT prophylaxis: SCDs Discharge Planning D/c home. Seth Hdez DO Jun 10, 2016 08:59
[2016-06-10] MEDS ORDERED: PANTOPRAZOLE SOD 40 MG DELAYED RELEASE TAB PO SCH (09:00)
[2016-06-10] MEDS: SODIUM CHLORIDE 0.9% FLUSH 5 ML FLUSH FLUSH SCH (09:00)
[2016-06-10] MEDS ORDERED: AMOXICILLIN/CLAVULANATE K 875 MG TAB PO SCH (09:00)
== END 2016-06-10 10:12 | disposition home or self-care (01) | DRG 137 ==
LOC: PHED 21:39 → OBSVTOIN 23:39 → PHEDA 23:39 → PHEDH 06-07 03:47 → NEPHCDU 06-07 05:08 → HOCB 06-07 20:47
PROVIDERS: ADMIT Hospitalist; ATTEND Hospitalist
PROC: 0W950ZZ Drainage of Lower Jaw, Open Approach (ICD-10-PCS; principal; 2016-06-07 16:26)
PROC: 0CDWXZ1 Extraction of Upper Tooth, Multiple, External Approach (ICD-10-PCS; 2016-06-07 16:26)
DX: K04.7 Periapical abscess without sinus (principal); K12.2 Cellulitis and abscess of mouth; K02.9 Dental caries, unspecified; K03.81 Cracked tooth; E87.6 Hypokalemia; D64.9 Anemia, unspecified
CPT/HCPCS: 80048; 85025; 87015; 87040; 87070; 87077; 87102; 87116; 87185; 87205; 87206; 96365; 96375; C9113; J0131; J0295; J0690; J1040; J1100; J1885; J2250; J2405; J2710; J2930; J3010; J3480; J7030

== ENCOUNTER 2016-10-26 18:11 | Emergency (ER) | payer SELFPAY ==
[~2016-10-26] VITALS: Ht 177.8 cm; Wt 98.0 kg
[~2016-10-26 18:11] MED LIST changes: -AMOX500C PO; +AUGM875T PO; -CLIN1CAP5 PO; -DEPO150I IM; -DICL75 PO; +HYDR-3516 PO; -HYDR-3533 PO; -METH750T2 PO
[2016-10-26 18:14] VITALS: BP 120/83; PULSE 80; RESP 16; TEMP 98.6; O2SAT 98
== END 2016-10-26 20:26 | disposition left against medical advice (07) ==
LOC: NED 20:20
DX: O26.859 Spotting complicating pregnancy, unspecified trimester (principal); Z3A.00 Weeks of gestation of pregnancy not specified; Z53.21 Procedure and treatment not carried out due to patient leaving prior to being seen by health care provider
CPT/HCPCS: 99281

== ENCOUNTER 2017-04-12 10:16 | Emergency (ER) | payer OTHER ==
[2017-04-12 10:34] VITALS: BP 114/75; PULSE 68
[2017-04-12 10:45] VITALS: RESP 20; TEMP 98.8
--- NOTE | 2017-04-12 11:08 | PD ---
HPI Chief Complaint fell in shower Date Seen: Apr 12, 2017 Time Seen: 10:58 Travel History International Travel<30 Days: No Contact w/Intl Traveler<30Days: No History of Present Illness HPI Patient is a 26 year old at 29 and 6/7 weeks gestation by first trimester US (per pt report), who presents to OB ED after falling in shower at 8am. She hit her left hip and left lower stomach, describes fall as mechanical. No prodrome or loss of consciousness. She denies leakage of fluid, vaginal bleeding , and contractions. She feels baby moving this morning. She denies ANNA/N/V/D/ fever/sick contacts/SOB/calf pain/dizziness/seeing spots. OB care is with an OB in [place] but states she has appointment with [facility] in April. History Past Medical History Medical History: Denies Significant Hx Obstetric History Obstetric History G1: 6 year old boy, , no complications G2: 12 weeks miscarriage G3: current Past Surgical History Narrative Surgical Hand surgery Oral surgery No abdominal surgeons Family History Narrative Family History HTN Social History Alcohol Use: No Tobacco Use: No Substance Abuse: No Allergies-Medications (Allergen,Severity, Reaction): Coded Allergies: No Known Allergies (Verified , 06/06/16) Home Meds Active Scripts Hydrocodone-Acetaminophen (Hydrocodone-Acetaminophen) 5-325 mg Tab, 1 TAB PO Q6HR Y for PAIN SCALE 6 TO 10, #28 TAB Prov:Seth Hdez DO 06/10/16 Amoxicillin-Clavulanate (Augmentin) 875-125 mg Tab, 1 TAB PO BID for Infection, #10 TAB 0 Refills not for use in CrCl <30 ml/min. Prov:Seth Hdez DO 06/10/16 Review of Systems Except as stated in HPI: all other systems reviewed are Neg Physical Exam Vital Signs Date Time Temp Pulse Resp B/P (MAP) Pulse Ox O2 Delivery O2 Flow Rate FiO2 04/12/17 10:45 98.8 20 04/12/17 10:34 68 114/75 (88) Narrative GENERAL: Well-nourished, well-developed patient. SKIN: Warm and dry. HEAD: Normocephalic and atraumatic. EYES: No scleral icterus. No injection or drainage. ENT: No nasal drainage noted. Mucous membranes pink. Airway patent. NECK: Supple, trachea midline. No JVD. CARDIOVASCULAR: Regular rate and rhythm without murmurs, gallops, or rubs. RESPIRATORY: Breath sounds equal bilaterally. No accessory muscle use. ABDOMEN/GI: Abdomen soft, non-tender, bowel sounds present, no rebound, no guarding. Gravid to ~30 weeks. GENITOURINARY: External Genitalia: deferred Uterine Contractions: absent FHT's: Category: 1 Baseline: 150s Reactive: 170s Variability: mod Decels: absent EXTREMITIES: No cyanosis or edema. BACK: Nontender without obvious deformity. No CVA tenderness. NEUROLOGICAL: Awake and alert. Motor and sensory grossly within normal limits. Five out of 5 muscle strength in all muscle groups. Normal speech. MSK: strength 5/5 in UE and LEs, no deformities. Normal 2+ pulses and normal ROM. Mild tenderness to palpation across lower abdomen with no skin changes noted. Data Data Vital Signs Reviewed: Yes (reviewed in EMR, wnl) Orders Orders Vital Signs (Adult) .ON ADMISSION (04/12/17 10:38) ^ Labor Status (04/12/17 10:38) ^ Non Stress Test (04/12/17 10:38) ^ Hydration (04/12/17 10:38) Electrocardiogram (04/12/17 ) [facility] Medical Record Reviewed: Yes Narrative Course / MDM 26 year old at 29 and 6/7 weeks gestation who presents to OB ED after falling in shower at 8am. Clincal exam benign. NST Category 1, no uterine irritability or CTX. OB care in [place]. Intrauterine : Category 1 tracing Reassuring FHTs Obtain records from [place] Routine care Abdominal Trauma: Mild by history Clinical exam benign Obtain EKG given multiple falls this , may benefit from Holter monitor as outpt Tylenol 650mg x 1 offered Will discharge home in 1-2 hr of monitoring if no signs of abruption, labor SDW Dr. Blackburn Diagnosis Diagnosis: Primary Impression: 29 weeks gestation of Additional Impression: Abdominal pain affecting Disposition: 01 DISCHARGE HOME Condition: Stable Patient Instructions: Abdominal Pain in (ED), General Instructions, Labor (ED) Departure Forms: Tests/Procedures, Work Release Enter return to work date: Apr 13, 2017 Stacey Johnson MD R2 Apr 12, 2017 11:08
[2017-04-12] MEDS ORDERED: ACETAMINOPHEN 325 MG TAB PO ONE (11:15)
--- NOTE | 2017-04-12 14:43 | EKG ---
Date Performed: 04/12/2017 Time Performed: 11:29:31 PTAGE: 26 years EKG: Sinus rhythm NORMAL ECG NO PREVIOUS TRACING DOCTOR: Royce Danielson Interpretating Date/Time 04/12/2017 14:41:58
== END 2017-04-12 14:30 | disposition home or self-care (01) ==
LOC: HOBED 10:16
DX: O26.893 Other specified pregnancy related conditions, third trimester (principal); R10.9 Unspecified abdominal pain; W18.2XXA Fall in (into) shower or empty bathtub, initial encounter; Y93.E1 Activity, personal bathing and showering; Y92.002 Bathroom of unspecified non-institutional (private) residence as the place of occurrence of the external cause; Z3A.29 29 weeks gestation of pregnancy
CPT/HCPCS: 93005; 99284

== ENCOUNTER 2017-04-25 17:04 | Emergency (ER) | payer MEDICAID, OTHER ==
[~2017-04-25] VITALS: Ht 180.3 cm; Wt 97.7 kg
[2017-04-25 17:05] VITALS: BP 154/79; PULSE 91; RESP 13; TEMP 98.7; O2SAT 99
[2017-04-25 17:56] LABS: BACTERIA, URINE OCC /hpf; BILIRUBIN, URINE NEG (NEG); BLOOD, URINE NEG (NEG); GLUCOSE,URINE NEG (NEG); KETONE, URINE NEG (NEG); NITRITE,URINE NEG (NEG); PH, URINE 6.5 (5.0-8.5); SQUAMOUS EPITHELIAL CELL URINE 4 /hpf (0-5); TRANSITIONAL EPI CELLS, URINE <1 /hpf; URINE COLOR LIGHT-YELLOW (YELLW/STRAW); URINE LEUKOCYTE ESTERASE LARGE (NEG)
[2017-04-25] MEDS ORDERED: SODIUM CHLOR 0.9% 1000 ML INJ 1,000 ML IV ONE (20:00)
[2017-04-25] MEDS ORDERED: ACETAMINOPHEN 325 MG TAB PO ONE (20:00)
[2017-04-25 21:35] LABS: ALKALINE PHOSPHATASE 113 U/L (45-117); ALT (GPT) 14 U/L (10-53); TOTAL BILIRUBIN ADULT 0.2 MG/DL (0.2-1.0); TOTAL PROTEIN 7.4 GM/DL (6.4-8.2)
[2017-04-25 21:38] LABS: AUTOMATED NEUTROPHIL # 8.7 TH/MM3 (1.8-7.7); BASOPHIL % 0.3 % (0.0-2.0); EOSINOPHIL # 0.2 TH/MM3 (0-0.4); EOSINOPHIL % 1.4 % (0.0-4.0); HEMATOCRIT 30.4 % (35.0-46.0); HEMOGLOBIN 10.3 GM/DL (11.6-15.3); LYMPHOCYTE # 1.8 TH/MM3 (1.0-4.8); MEAN CELL VOLUME 83.6 FL (80.0-100.0); MEAN CORPUSCULAR HEMOGLOBIN 28.3 PG (27.0-34.0); MEAN CORPUSCULAR HGB CONC 33.8 % (32.0-36.0); MEAN PLATELET VOLUME 9.4 FL (7.0-11.0); MONOCYTE # 0.6 TH/MM3 (0-0.9); NEUT % 77.3 % (16.0-70.0); PLATELET COUNT 242 TH/MM3 (150-450); RED BLOOD COUNT 3.64 MIL/MM3 (4.00-5.30); RED CELL DISTRIBUTION WIDTH 12.4 % (11.6-17.2); WHITE BLOOD COUNT 11.3 TH/MM3 (4.0-11.0)
[2017-04-25 21:39] LABS: ALBUMIN 2.4 GM/DL (3.4-5.0); AST (GOT) 18 U/L (15-37); BICARBONATE 22.3 MEQ/L (21.0-32.0); BLOOD UREA NITROGEN 6 MG/DL (7-18); CALCIUM 8.4 MG/DL (8.5-10.1); CHLORIDE 104 MEQ/L (98-107); CREATININE 0.61 MG/DL (0.50-1.00); GLOMERULAR FILTRATION RATE 119 ML/MIN (>89); GLUCOSE,RANDOM 113 MG/DL (74-106); SODIUM (NA) 137 MEQ/L (136-145)
--- NOTE | 2017-04-25 21:56 | PD ---
HPI Chief Complaint: Syncope/Near-Syncope Time Seen by Provider: 19:47 Travel History International Travel<30 days: No Contact w/Intl Traveler<30days: No Traveled to known affect area: No History of Present Illness HPI Patient is a 26-year-old female, 31 weeks , who comes in after syncopal episode. She says for the past day, and vomited 3 times today. She says she does not want to know what happened, but she passed out and woke up on the floor. She has had some nasal congestion and cough. She says she feels a little short of breath, but thinks it is due to the nasal congestion. She also complains of some pressure in her lower abdomen. She denies leakage of fluids or vaginal bleeding. She says she has passed out 3 other times during this . She does report eating and drinking today. PFSH Past Medical History Musculoskeletal: Yes (LEFT TIB/FIB FX) Immunizations Current: Yes ?: : 2 Para: 1 Miscarriage: 1 Past Surgical History Other Surgery: Yes (LEFT HAND ) Social History Alcohol Use: No Tobacco Use: No Substance Use: No Allergies-Medications (Allergen,Severity, Reaction): Coded Allergies: No Known Allergies (Verified , 06/06/16) Reported Meds & Prescriptions Reported Meds & Active Scripts Active Hydrocodone-Acetaminophen 5-325 mg Tab 1 Tab PO Q6HR PRN Augmentin (Amoxicillin-Clavulanate) 875-125 mg Tab 1 Tab PO BID not for use in CrCl <30 ml/min. Review of Systems Except as stated in HPI: all other systems reviewed are Neg General / Constitutional: No: Fever, Chills Eyes: No: Blurred Vision HENT: Positive: Congestion, No: Headaches, Lightheadedness Cardiovascular: No: Chest Pain or Discomfort Respiratory: Positive: Shortness of Breath Gastrointestinal: Positive: Nausea, Vomiting, Abdominal Pain Genitourinary: No: Dysuria Musculoskeletal: No: Myalgias, Edema Skin: No Change in Pigmentation Neurologic: Positive: Syncope, No: Weakness Physical Exam Narrative GENERAL: Awake and alert, in no acute distress. SKIN: Focused skin assessment warm/dry. HEAD: Atraumatic. Normocephalic. EYES: Pupils equal and round. No scleral icterus. Extraocular movements intact. ENT: Mucous membranes pink and moist. NECK: Trachea midline. No JVD. CARDIOVASCULAR: Regular rate and rhythm. No murmur appreciated. RESPIRATORY: No accessory muscle use. Clear to auscultation. Breath sounds equal bilaterally. GASTROINTESTINAL: Gravid uterus, nontender to palpation. MUSCULOSKELETAL: No obvious deformities. No clubbing. No cyanosis. No edema. NEUROLOGICAL: Awake and alert. No obvious cranial nerve deficits. Motor grossly within normal limits. Normal speech. PSYCHIATRIC: Appropriate mood and affect; insight and judgment normal. Data Data Last Documented VS Vital Signs Date Time Temp Pulse Resp B/P (MAP) Pulse Ox O2 Delivery O2 Flow Rate FiO2 04/25/17 17:05 98.7 91 13 154/79 (104) 99 Orders Orders Urinalysis - C+S If Indicated (04/25/17 17:23) Iv Access Insert/Monitor (04/25/17 19:56) Complete Blood Count With Diff (04/25/17 19:56) Comprehensive Metabolic Panel (04/25/17 19:56) Influenzae A/B Antigen (04/25/17 19:56) Electrocardiogram (04/25/17 ) Sodium Chlor 0.9% 1000 Ml Inj (Ns 1000 M (04/25/17 20:00) Acetaminophen (Tylenol) (04/25/17 20:00) Labs Laboratory Tests Test 04/25/17 17:30 04/25/17 20:50 Urine Color LIGHT-YELLOW Urine Turbidity HAZY Urine pH 6.5 Urine Specific [place] 1.004 Urine Protein NEG mg/dL Urine Glucose (UA) NEG mg/dL Urine Ketones NEG mg/dL Urine Occult Blood NEG Urine Nitrite NEG Urine Bilirubin NEG Urine Urobilinogen LESS THAN 2.0 MG/DL Urine Leukocyte Esterase LARGE Urine RBC 7 /hpf Urine WBC 5 /hpf Urine Squamous Epithelial Cells 4 /hpf Urine Transitional Epithelial Cells <1 /hpf Urine Bacteria OCC /hpf Microscopic Urinalysis Comment CULT NOT INDICATED White Blood Count 11.3 TH/MM3 Red Blood Count 3.64 MIL/MM3 Hemoglobin 10.3 GM/DL Hematocrit 30.4 % Mean Corpuscular Volume 83.6 FL Mean Corpuscular Hemoglobin 28.3 PG Mean Corpuscular Hemoglobin Concent 33.8 % Red Cell Distribution Width 12.4 % Platelet Count 242 TH/MM3 Mean Platelet Volume 9.4 FL Neutrophils (%) (Auto) 77.3 % Lymphocytes (%) (Auto) 16.0 % Monocytes (%) (Auto) 5.0 % Eosinophils (%) (Auto) 1.4 % Basophils (%) (Auto) 0.3 % Neutrophils # (Auto) 8.7 TH/MM3 Lymphocytes # (Auto) 1.8 TH/MM3 Monocytes # (Auto) 0.6 TH/MM3 Eosinophils # (Auto) 0.2 TH/MM3 Basophils # (Auto) 0.0 TH/MM3 CBC Comment DIFF FINAL Differential Comment Blood Urea Nitrogen 6 MG/DL Creatinine 0.61 MG/DL Random Glucose 113 MG/DL Total Protein 7.4 GM/DL Albumin 2.4 GM/DL Calcium Level 8.4 MG/DL Alkaline Phosphatase 113 U/L Aspartate Amino Transf (AST/SGOT) 18 U/L Alanine Aminotransferase (ALT/SGPT) 14 U/L Total Bilirubin 0.2 MG/DL Sodium Level 137 MEQ/L Potassium Level 3.7 MEQ/L Chloride Level 104 MEQ/L Carbon Dioxide Level 22.3 MEQ/L Anion Gap 11 MEQ/L Estimat Glomerular Filtration Rate 119 ML/MIN [facility] Medical Decision Making Medical Screen Exam Complete: Yes Emergency Medical Condition: Yes Medical Record Reviewed: Yes Interpretation(s) ECG shows normal sinus rhythm at 78, no ST elevation or depression. Differential Diagnosis Dehydration versus influenza versus URI Narrative Course Patient is a 26-year-old female who comes in after syncopal episode. She is 31 weeks . IV established, labs sent. Labs show no acute abnormalities. Patient is refusing imaging at this time. She is given IV fluids and will be cleared to go to OB triage. I spoke with Dr. Harding who accepted the patient to triage. Diagnosis Primary Impression: Syncope Qualified Codes: R55 - Syncope and collapse Patient Instructions: General Instructions, Syncope (ED) Additional Instructions: Drink plenty of fluids. Follow up with OB. Return at any time for any worsening symptoms. Disposition: 01 DISCHARGE HOME Condition: Stable Jessica Bloom MD Apr 25, 2017 21:56
--- NOTE | 2017-04-25 23:00 | PD ---
HPI Chief Complaint Syncopal episode Date Seen: Apr 25, 2017 Time Seen: 22:55 Travel History International Travel<30 Days: No Contact w/Intl Traveler<30Days: No Known Affected Area: No History of Present Illness HPI 26-year-old 3 para 1 at 31 weeks gestation who was evaluated in the main emergency room for syncopal episode and given IV hydration. She comes up here for monitoring. No diagnosis was given for the syncopal episode. No chest pain, shortness of breath or seizure-like activity. She reports that this has happened 3 other times in the . She is recently relocated here from [place]. She will be seeing Dr. Rodriguez for care. History Past Medical History Medical History: Denies Significant Hx Obstetric History Obstetric History 1 term vaginal delivery 1 spontaneous AB Past Surgical History Narrative Surgical Hand surgery, oral surgery Family History Family History: Negative Social History Alcohol Use: No Tobacco Use: No Substance Abuse: No Allergies-Medications (Allergen,Severity, Reaction): Coded Allergies: No Known Allergies (Verified , 06/06/16) Home Meds Active Scripts Hydrocodone-Acetaminophen (Hydrocodone-Acetaminophen) 5-325 mg Tab, 1 TAB PO Q6HR Y for PAIN SCALE 6 TO 10, #28 TAB Prov:Seth Hdez DO 06/10/16 Amoxicillin-Clavulanate (Augmentin) 875-125 mg Tab, 1 TAB PO BID for Infection, #10 TAB 0 Refills not for use in CrCl <30 ml/min. Prov:Seth Hdez DO 06/10/16 Review of Systems Except as stated in HPI: all other systems reviewed are Neg Physical Exam Vital Signs Date Time Temp Pulse Resp B/P (MAP) Pulse Ox O2 Delivery O2 Flow Rate FiO2 04/25/17 21:53 04/25/17 17:05 98.7 91 13 154/79 (104) 99 Narrative GENERAL: Well-nourished, well-developed patient. SKIN: Warm and dry. HEAD: Normocephalic and atraumatic. EYES: No scleral icterus. No injection or drainage. ENT: No nasal drainage noted. Mucous membranes pink. Airway patent. NECK: Supple, trachea midline. No JVD. CARDIOVASCULAR: Regular rate and rhythm without murmurs, gallops, or rubs. RESPIRATORY: Breath sounds equal bilaterally. No accessory muscle use. ABDOMEN/GI: Abdomen soft, non-tender, bowel sounds present, no rebound, no guarding Gravid to [-] weeks size Fundal Height: [-] GENITOURINARY: External Genitalia: intact and normal in appearance BUS glands: [-] Cervix: [-] Dilatation: [-] Effacement: [-] Station: [-] Presentation: [-] Membranes: [intact or ruptured] Uterine Contractions: [-] FHT's: Category: [1-] Baseline: [-] Reactive: [-Yes] Variability: [-] Decels: [-] EXTREMITIES: No cyanosis or edema. BACK: Nontender without obvious deformity. No CVA tenderness. NEUROLOGICAL: Awake and alert. Motor and sensory grossly within normal limits. Five out of 5 muscle strength in all muscle groups. Normal speech. Data Data Vital Signs Reviewed: Yes Orders Orders Urinalysis - C+S If Indicated (04/25/17 17:23) Iv Access Insert/Monitor (04/25/17 19:56) Complete Blood Count With Diff (04/25/17 19:56) Comprehensive Metabolic Panel (04/25/17 19:56) Influenzae A/B Antigen (04/25/17 19:56) Electrocardiogram (04/25/17 ) Sodium Chlor 0.9% 1000 Ml Inj (Ns 1000 M (04/25/17 20:00) Acetaminophen (Tylenol) (04/25/17 20:00) Ed Discharge Order (04/25/17 21:56) Labs Laboratory Tests Test 04/25/17 17:30 04/25/17 20:50 Urine Color LIGHT-YELLOW Urine Turbidity HAZY Urine pH 6.5 Urine Specific Bronson 1.004 Urine Protein NEG Urine Glucose (UA) NEG Urine Ketones NEG Urine Occult Blood NEG Urine Nitrite NEG Urine Bilirubin NEG Urine Urobilinogen LESS THAN 2.0 Urine Leukocyte Esterase LARGE Urine RBC 7 Urine WBC 5 Urine Squamous Epithelial Cells 4 Urine Transitional Epithelial Cells <1 Urine Bacteria OCC Microscopic Urinalysis Comment CULT NOT INDICATED White Blood Count 11.3 Red Blood Count 3.64 Hemoglobin 10.3 Hematocrit 30.4 Mean Corpuscular Volume 83.6 Mean Corpuscular Hemoglobin 28.3 Mean Corpuscular Hemoglobin Concent 33.8 Red Cell Distribution Width 12.4 Platelet Count 242 Mean Platelet Volume 9.4 Neutrophils (%) (Auto) 77.3 Lymphocytes (%) (Auto) 16.0 Monocytes (%) (Auto) 5.0 Eosinophils (%) (Auto) 1.4 Basophils (%) (Auto) 0.3 Neutrophils # (Auto) 8.7 Lymphocytes # (Auto) 1.8 Monocytes # (Auto) 0.6 Eosinophils # (Auto) 0.2 Basophils # (Auto) 0.0 CBC Comment DIFF FINAL Differential Comment Blood Urea Nitrogen 6 Creatinine 0.61 Random Glucose 113 Total Protein 7.4 Albumin 2.4 Calcium Level 8.4 Alkaline Phosphatase 113 Aspartate Amino Transf (AST/SGOT) 18 Alanine Aminotransferase (ALT/SGPT) 14 Total Bilirubin 0.2 Sodium Level 137 Potassium Level 3.7 Chloride Level 104 Carbon Dioxide Level 22.3 Anion Gap 11 Estimat Glomerular Filtration Rate 119 Date/Time Source Procedure Growth Status 04/25/17 20:50 Nasal Washing Influenza Types A,B Antigen (ENMA) - Final NEGATIVE FOR FLU A AND B ANTIGEN.... Complete MDM Medical Record Reviewed: Yes Narrative Course / MDM Assessment: 31 week gestation with syncopal episode, mild anemia Plan: We discussed hydration and encouraged her to continue her plan for care with Dr. Rodriguez. Precautions for return to the ED were reviewed with her. Diagnosis Diagnosis: Primary Impression: Syncope Qualified Codes: R55 - Syncope and collapse Additional Impression: 31 weeks gestation of Disposition: 01 DISCHARGE HOME Condition: Good Patient Instructions: General Instructions, Syncope (ED) Additional Instructions: Drink plenty of fluids. Follow up with OB. Return at any time for any worsening symptoms. Departure Forms: Tests/Procedures Jose Daniel Strickland MD Apr 25, 2017 23:00
--- NOTE | 2017-04-26 10:12 | EKG ---
Date Performed: 04/25/2017 Time Performed: 20:45:43 PTAGE: 26 years EKG: Sinus rhythm NORMAL ECG NO PREVIOUS TRACING DOCTOR: Jose Daniel Gold Interpretating Date/Time 04/26/2017 10:12:09
== END 2017-04-25 23:12 | disposition home or self-care (01) ==
LOC: NEPD 17:04 → HOBED 23:12
DX: O99.013 Anemia complicating pregnancy, third trimester (principal); D64.9 Anemia, unspecified; R55 Syncope and collapse; Z3A.31 31 weeks gestation of pregnancy
CPT/HCPCS: 59025; 80053; 81001; 85025; 87804; 93005; 99284; J7030

== ENCOUNTER 2017-04-27 09:49 | Emergency (ER) | payer MEDICAID ==
[~2017-04-27] VITALS: Ht 180.3 cm; Wt 103.0 kg
[2017-04-27 09:52] VITALS: BP 129/77; PULSE 82; RESP 20; TEMP 97.3; O2SAT 100
[2017-04-27] MEDS ORDERED: PRENCHW PO (10:05)
[2017-04-27] MEDS ORDERED: AMOX500T PO (10:22)
--- NOTE | 2017-04-27 10:23 | PD ---
HPI Chief Complaint: Cold / Flu Symptoms Time Seen by Provider: 10:11 Travel History International Travel<30 days: No Contact w/Intl Traveler<30days: No Traveled to known affect area: No History of Present Illness HPI This 32-year-old female has been sick for 2 weeks. She says she's been congested and sneezing a lot. He is not aware of fever or chills. She is 32 weeks . She was seen in the emergency department couple of days ago after a syncopal episode. She has had several episodes of syncope during this he does not smoke cigarettes. She does not have a OB doctor at this time as she just moved here from [facility] Past Medical History Medical History: Denies Significant Hx Musculoskeletal: Yes (LEFT TIB/FIB FX) Immunizations Current: Yes Influenza Vaccination: No ?: LMP: 32 WEEKS : 2 Para: 1 Miscarriage: 1 Past Surgical History Other Surgery: Yes (LEFT HAND ) Social History Alcohol Use: No Tobacco Use: No Substance Use: No Allergies-Medications (Allergen,Severity, Reaction): Coded Allergies: No Known Allergies (Verified Adverse Reaction, Unknown, 04/27/17) Reported Meds & Prescriptions Reported Meds & Active Scripts Active Reported 19 ( Vit W/ Ferrous Fumara) 29 Mg Iron-1 Mg Chw 1 Tab PO DAILY Review of Systems General / Constitutional: No: Fever, Chills Eyes: No: Diploplia HENT: Positive: Sore Throat, Rhinitis, Rhinorrhea Cardiovascular: No: Chest Pain or Discomfort Respiratory: Positive: Cough Gastrointestinal: No: Nausea Genitourinary: No: Urgency, Frequency Skin: No Rash Neurologic: No: Weakness, Dizziness Physical Exam Narrative GENERAL: Well-developed female SKIN: Focused skin assessment warm/dry. HEAD: Atraumatic. Normocephalic. EYES: Pupils equal and round. No scleral icterus. No injection or drainage. ENT: Nasal turbinates are erythematous and swollen. There is moderate amount of discharge. She is tender over both maxillary sinuses. Posterior pharynx erythematous without exudate. There is bilateral anterior cervical adenopathy NECK: Trachea midline. No JVD. CARDIOVASCULAR: Regular rate and rhythm. No murmur appreciated. RESPIRATORY: No accessory muscle use. Clear to auscultation. Breath sounds equal bilaterally. GASTROINTESTINAL: Abdomen soft, non-tender, nondistended. Hepatic and splenic margins not palpable. MUSCULOSKELETAL: No obvious deformities. No clubbing. No cyanosis. No edema. NEUROLOGICAL: Awake and alert. No obvious cranial nerve deficits. Motor grossly within normal limits. Normal speech. PSYCHIATRIC: Appropriate mood and affect; insight and judgment normal. Data Data Last Documented VS Vital Signs Date Time Temp Pulse Resp B/P (MAP) Pulse Ox O2 Delivery O2 Flow Rate FiO2 04/27/17 09:52 97.3 82 20 129/77 (94) 100 MDM Medical Decision Making Medical Screen Exam Complete: Yes Emergency Medical Condition: Yes Medical Record Reviewed: Yes Differential Diagnosis Differential includes upper respiratory infection, acute sinusitis, URI Narrative Course Exam is consistent with sinusitis and the patient has been sick for 2 weeks. I will initiate amoxicillin Diagnosis Primary Impression: Acute sinusitis Scripts Amoxicillin (Amoxicillin) 500 Mg Tab 500 MG PO TID for Infection for 10 Days, TAB 0 Refills Prov: José Miguel Murray MD 04/27/17 Disposition: 01 DISCHARGE HOME Condition: Stable José Miguel Murray MD Apr 27, 2017 10:23
== END 2017-04-27 10:31 | disposition home or self-care (01) ==
LOC: PHED 09:49
DX: O99.513 Diseases of the respiratory system complicating pregnancy, third trimester (principal); J01.90 Acute sinusitis, unspecified; Z3A.32 32 weeks gestation of pregnancy
CPT/HCPCS: 99283

== ENCOUNTER 2017-06-13 12:28 | Emergency (ER) | payer MEDICAID ==
[~2017-06-13 12:28] MED LIST changes: +AMOX500T PO; -AUGM875T PO; -HYDR-3516 PO; +PRENCHW PO
--- NOTE | 2017-06-13 13:42 | PD ---
HPI Chief Complaint Contractions Travel History International Travel<30 Days: No Contact w/Intl Traveler<30Days: No Known Affected Area: No History of Present Illness HPI 26-year-old 011, IUP at 38.5 care uncomplicated except for obesity The patient presents complaining of worsening pelvic pressure. She also reports the onset of irregular contractions yesterday which increased in intensity and frequency today at about 9-10 AM but they are still irregular and only mild. There are no aggravating or alleviating factors, there are no attempted treatments. The patient reports good movement. She denies any leaking of fluid or vaginal bleeding. Weeks Gestation: 38 Para: 1 : 3 Miscarriage: 1 History Past Medical History Narrative Medical Obesity Obstetric History Obstetric History Obesity Past Surgical History Narrative Surgical Oral surgery Hand surgery Family History Narrative Family History Hypertension Social History Alcohol Use: No Tobacco Use: No Substance Abuse: No Allergies-Medications (Allergen,Severity, Reaction): Coded Allergies: No Known Allergies (Verified Adverse Reaction, Unknown, 04/27/17) Home Meds Active Scripts Amoxicillin (Amoxicillin) 500 Mg Tab, 500 MG PO TID for Infection for 10 Days, TAB 0 Refills Prov:José Miguel Murray MD 04/27/17 Reported Medications Vit W/ Ferrous Fumara ( 19) 29 Mg Iron-1 Mg Chw, 1 TAB PO DAILY for Nutritional Supplement 04/27/17 Review of Systems Except as stated in HPI: all other systems reviewed are Neg Physical Exam Narrative GENERAL: Well-nourished, well-developed patient. SKIN: Warm and dry. HEAD: Normocephalic and atraumatic. EYES: No scleral icterus. No injection or drainage. ENT: No nasal drainage noted. Mucous membranes pink. Airway patent. NECK: Supple, trachea midline. No JVD. CARDIOVASCULAR: Regular rate and rhythm without murmurs, gallops, or rubs. RESPIRATORY: Breath sounds equal bilaterally. No accessory muscle use. BREASTS: Deferred ABDOMEN/GI: Abdomen soft, non-tender, bowel sounds present, no rebound, no guarding Gravid GENITOURINARY: External Genitalia: intact and normal in appearance. Normal BUS. No cervical or vaginal masses noted. Grossly normal rugae. Physiologic discharge. SVE 1/50/-2, examination unchanged over 1 hour. FHT's: heart tones in the 150s with moderate long-term variability, good accelerations, no decelerations noted. This is a category 1 heart rate tracing and a reactive NST EXTREMITIES: No cyanosis or edema. BACK: Nontender without obvious deformity. NEUROLOGICAL: Awake and alert. Motor and sensory grossly within normal limits. Normal speech. Musculoskeletal: Grossly normal range of motion, gait, muscle strength Psychiatric: Grossly normal memory and affect MDM Plan Assessment/plan: 1. IUP at 38.5 2. Contractions and pelvic pressure at term: No evidence of active labor with no change in cervical examination over observation period. Strict labor precautions. 3. well-being: Reassuring testing with reactive NST and category 1 heart rate tracing. FHR is reassuring and appropriate for gestational age. kick counts daily. 4. Obesity 5. Follow up with primary OB in 2-3 days as scheduled or sooner as needed Diagnosis Diagnosis: Primary Impression: 38 weeks gestation of Additional Impression: False labor after 37 completed weeks of gestation Disposition: 01 DISCHARGE HOME Katherine Richard MD Jun 13, 2017 13:42
== END 2017-06-13 14:44 | disposition home or self-care (01) ==
LOC: HOBED 12:28
DX: O47.1 False labor at or after 37 completed weeks of gestation (principal); Z3A.38 38 weeks gestation of pregnancy
CPT/HCPCS: 59025

== ENCOUNTER 2017-06-19 13:43 | Inpatient (IN) | payer MEDICAID ==
[2017-06-19] MEDS ORDERED: LACTATED RINGER'S 1000 ML INJ 1,000 ML IV PRN (14:37)
[2017-06-19] MEDS ORDERED: ONDANSETRON HCL 4 MG/2 ML VIAL IV PUSH PRN (14:45)
[2017-06-19] MEDS ORDERED: MINERAL OIL 10 ML VIAL TOPICAL PRN (14:45)
[2017-06-19] MEDS ORDERED: PENICILLIN G POTASSIUM INJ 5,000,000 UNITS in SODIUM CHLORIDE 0.9% INJ 100 ML IV ONE (14:45)
[2017-06-19] MEDS ORDERED: LIDOCAINE HCL 1% 50 ML VIAL I-DERMAL PRN (14:45)
[2017-06-19] MEDS ORDERED: LIDOCAINE HCL 1% 50 ML VIAL INFIL PRN (14:45)
[2017-06-19] MEDS ORDERED: CITRIC ACID-SODIUM CITRATE LIQ 30 ML UDC PO SCH (14:45)
[2017-06-19] MEDS ORDERED: OXYTOCIN 30 UNITS-500ML PREMIX 500 ML IV ONE (14:45)
[2017-06-19] MEDS ORDERED: SODIUM CHLORID 0.9% 500 ML INJ 500 ML IV PRN (14:45)
--- NOTE | 2017-06-19 14:54 | HHI.HP ---
History & Physical H&P HPI Chief Complaint ctxs Date Seen: Jun 19, 2017 Time Seen: 14:42 Travel History International Travel<30 Days: No Contact w/Intl Traveler<30Days: No Known Affected Area: No History of Present Illness HPI pt. is a at 39 4/7 weeks present w/ c/o ctxs. pt. teri ctxs began yesterday and have increaased in intensity and freq since. +FM, no lof/vb. pt. is GBS +. Weeks Gestation: 39 Para: 1 : 3 Miscarriage: 1 History (Limited) History Past Medical History Medical History: Denies Significant Hx Obstetric History Obstetric History , x1, SAB x 1 Past Surgical History Surgical History: No Previous Surgery Family History Family History: Negative Social History Alcohol Use: No Tobacco Use: No Substance Abuse: No Allergies-Medications Allergies-Medications (Allergen,Severity, Reaction): Coded Allergies: No Known Allergies (Verified Adverse Reaction, Unknown, 04/27/17) Home Meds Active Scripts Amoxicillin (Amoxicillin) 500 Mg Tab, 500 MG PO TID for Infection for 10 Days, TAB 0 Refills Prov:José Miguel Murray MD 04/27/17 Reported Medications Vit W/ Ferrous Fumara ( 19) 29 Mg Iron-1 Mg Chw, 1 TAB PO DAILY for Nutritional Supplement 04/27/17 ROS Review of Systems Except as stated in HPI: all other systems reviewed are Neg Physical Exam Physical Exam Narrative GENERAL: Well-nourished, well-developed patient. SKIN: Warm and dry. HEAD: Normocephalic and atraumatic. EYES: No scleral icterus. No injection or drainage. ENT: No nasal drainage noted. Mucous membranes pink. Airway patent. NECK: Supple, trachea midline. No JVD. CARDIOVASCULAR: Regular rate and rhythm without murmurs, gallops, or rubs. RESPIRATORY: Breath sounds equal bilaterally. No accessory muscle use. ABDOMEN/GI: Abdomen soft, non-tender, bowel sounds present, no rebound, no guarding Gravid to 39 weeks size Fundal Height: 39 GENITOURINARY: External Genitalia: intact and normal in appearance Cervix: Dilatation: 7 Effacement: 80 Station: 0 Presentation: 0 Membranes: intact Uterine Contractions: irreg FHT's: Category: 2 Baseline: [-] Reactive: + Variability: moderate Decels: variable EXTREMITIES: No cyanosis or edema. BACK: Nontender without obvious deformity. No CVA tenderness. NEUROLOGICAL: Awake and alert. Motor and sensory grossly within normal limits. Five out of 5 muscle strength in all muscle groups. Normal speech. Data Data Data Orders Orders Ob (2e) Additional Admit Info (06/19/17 14:12) Admit To Inpatient (06/19/17 ) Code Status (06/19/17 14:37) Vital Signs (Adult) .Per protocol (06/19/17 14:37) Activity Oob Ad Essence (06/19/17 14:37) Heart (06/19/17 14:37) Amnioinfusion (06/19/17 14:37) Urinary Catheter Management .ONCE (06/19/17 14:37) Diet Npo (06/19/17 Dinner) Lactated Ringer's 1000 Ml Inj (Lr 1000 M (06/19/17 14:37) Lactated Ringer's 1000 Ml Inj (Lr 1000 M (06/19/17 14:37) Sodium Chlorid 0.9% 500 Ml Inj (Ns 500 M (06/19/17 14:45) Sodium Chlor 0.9% 1000 Ml Inj (Ns 1000 M (06/19/17 14:57) Lidocaine 1% Inj (50 Ml) (Xylocaine 1% I (06/19/17 14:45) Citric Acid-Sodium Citrate Liq (Bicitra (06/19/17 14:45) Ondansetron Inj (Zofran Inj) (06/19/17 14:45) Fentanyl Inj (Fentanyl Inj) (06/19/17 14:45) Fentanyl Inj (Fentanyl Inj) (06/19/17 14:45) Penicillin G Potassium Inj (Pfizerpen-G (06/19/17 14:45) Penicillin G Potassium Inj (Pfizerpen-G (06/19/17 18:45) Complete Blood Count With Diff (06/19/17 14:37) Hold Clot (06/19/17 14:37) Abo/Rh Blood Type (06/19/17 14:37) Urinalysis - C+S If Indicated (06/19/17 14:37) Drug Screen, Random Urine (06/19/17 14:37) Resp Oxygen Non Rebreathe Mask (06/19/17 ) ^ Epidural / Intrathecal Infus (06/19/17 14:37) Oxytocin 30 Units-500ml Premix (Pitocin (06/19/17 14:45) Lidocaine 1% Inj (50 Ml) (Xylocaine 1% I (06/19/17 14:45) Light Mineral Oil (Muri-Lube Oil) (06/19/17 14:45) Inpatient Certification (06/19/17 ) Group B Strep: Positive Labs pending MDM MDM Medical Record Reviewed: Yes Plan @ 39 4/7 weeks in active labor. pt. is GBS +. pt. to be admitted. Will use penicillin for gbs prophylaxis. FHT reassuring. EFM/[place]. expect . spoke to dr. mosher and will arom after gbs prophylaxis. Diagnosis Diagnosis: Primary Impression: 39 weeks gestation of Additional Impression: Uterine contractions during Terence Clark Jr., MD Jun 19, 2017 14:52 Terence Clark Jr., MD Jun 19, 2017 14:54
[2017-06-19] MEDS ORDERED: SODIUM CHLOR 0.9% 1000 ML INJ 1,000 ML IV PRN (14:57)
[2017-06-19] MEDS: LACTATED RINGER'S 1000 ML INJ 1,000 ML IV SCH (14:57)
[2017-06-19 15:20] LABS: AUTOMATED NEUTROPHIL # 8.7 TH/MM3 (1.8-7.7); BASOPHIL # 0.1 TH/MM3 (0-0.2); BASOPHIL % 0.6 % (0.0-2.0); EOSINOPHIL # 0.1 TH/MM3 (0-0.4); HEMATOCRIT 31.8 % (35.0-46.0); HEMOGLOBIN 10.6 GM/DL (11.6-15.3); LYMPH % 15.6 % (9.0-44.0); LYMPHOCYTE # 1.8 TH/MM3 (1.0-4.8); MEAN CELL VOLUME 79.3 FL (80.0-100.0); MEAN CORPUSCULAR HEMOGLOBIN 26.4 PG (27.0-34.0); MEAN CORPUSCULAR HGB CONC 33.4 % (32.0-36.0); MEAN PLATELET VOLUME 8.9 FL (7.0-11.0); MONO % 5.3 % (0.0-8.0); MONOCYTE # 0.6 TH/MM3 (0-0.9); NEUT % 77.5 % (16.0-70.0); PLATELET COUNT 264 TH/MM3 (150-450); RED BLOOD COUNT 4.01 MIL/MM3 (4.00-5.30); RED CELL DISTRIBUTION WIDTH 13.9 % (11.6-17.2); WHITE BLOOD COUNT 11.3 TH/MM3 (4.0-11.0)
--- NOTE | 2017-06-19 15:47 | PD.LABORPN ---
Subjective Subjective pt. is bed s/p penicillin for gbs prophylaxis. +FM, no lof/vb, reg ctxs. Objective Objective Pelvic Exam: Cervix: Dilatation: 7 Effacement: 90 Station: 0 Presentation: cephalic Membranes: ruptured Uterine Contractions: 2-5 mins FHT's: Category: 2 Baseline: 160 Reactive: + Variability: moderate Decels: variables Weeks Gestation: 39 Artificial ROM date: Jun 19, 2017 Artifical ROM time: 15:40 Assessment/Plan Problem List: (1) 39 weeks gestation of ICD Codes: Z3A.39 - 39 weeks gestation of Status: Acute (2) Uterine contractions during ICD Codes: O62.2 - Other uterine inertia Status: Acute Assessment and Plan pt. s/p arom for clear fluid. fht reactive cat 2. will continue to monitor. Terence Clark Jr., MD Jun 19, 2017 15:47
[2017-06-19] MEDS ORDERED: DIPHTH/TETANUS/ACEL PERTUSSIS (BOOSTER) 0.5 ML VIAL/PFS IM ONE (16:00)
[2017-06-19] MEDS ORDERED: MEASLES, MUMPS, RUBELLA VACCINE 0.5 ML VIAL SQ ONE (16:00)
[2017-06-19] MEDS ORDERED: LIDOCAINE HCL 1% 20 ML VIAL ONE (16:05)
[2017-06-19 16:55] LABS: BILIRUBIN, URINE NEG (NEG); BLOOD, URINE NEG (NEG); GLUCOSE,URINE NEG (NEG); KETONE, URINE NEG (NEG); MUCUS URINE FEW /lpf (OCC); NITRITE,URINE NEG (NEG); SQUAMOUS EPITHELIAL CELL URINE 1 /hpf (0-5); URINE COLOR LIGHT-YELLOW (YELLW/STRAW); URINE LEUKOCYTE ESTERASE SMALL (NEG)
[2017-06-19] MEDS ORDERED: OXYTOCIN 10 UNIT/ML AMP ONE (17:01)
--- NOTE | 2017-06-19 17:07 | PD.OB.DELI ---
Weeks gestation: 39 Gest age assessed date: Jun 19, 2017 Gest age assessed time: 13:00 Pt started active labor?: Yes Active labor start date: Jun 19, 2017 Active labor start time: 12:00 Medical induction of labor?: No Artificial rupture of membrane: Yes Artificial ROM date: Jun 19, 2017 Artifical ROM time: 15:48 Anesthesia: None Episiotomy: None Vaginal Delivery: Normal Presentation: Occiput anterior Nuchal Cord: x1 Delayed cord clamping (45 sec): No Shoulder Dystocia: Suprapubic pressure given, Parish maneuver done Infant: Male Delivery date: Jun 19, 2017 Delivery time: 16:47 One Minute : 9 Five Minute : 9 Placenta: Spontaneous delivery Laceration: No lacerations Estimated blood loss: 200cc Jose Daniel Rodriguez MD Jun 19, 2017 17:07
[2017-06-19] MEDS ORDERED: ALUMINUM/MAGNESIUM/SIMETH 30 ML CUP PO PRN (17:15)
[2017-06-19] MEDS ORDERED: SODIUM CHLORIDE 0.9% FLUSH 10 ML FLUSH IV FLUSH PRN (17:15)
[2017-06-19] MEDS ORDERED: OXYTOCIN 10 UNIT/ML AMP IM ONE (17:15)
[2017-06-19] MEDS ORDERED: WITCH HAZEL 50%/GLYCERIN 12.5% 40 PAD JAR TOPICAL PRN (17:15)
[2017-06-19] MEDS ORDERED: OXYTOCIN 30 UNITS-500ML PREMIX 500 ML IV SCH (17:15)
[2017-06-19] MEDS ORDERED: ONDANSETRON ODT 4 MG TAB PO PRN (17:15)
[2017-06-19] MEDS ORDERED: BENZOCAINE 20% TOPICAL SPRAY 60 ML CAN TOPICAL PRN (17:15)
[2017-06-19] MEDS ORDERED: DOCUSATE SODIUM 50 MG/SENNA 8.6 MG TAB PO PRN (17:15)
[2017-06-19] MEDS ORDERED: ZOLPIDEM TARTRATE 5 MG TAB PO PRN (17:15)
[2017-06-19] MEDS ORDERED: PENICILLIN G POTASSIUM INJ 2,500,000 UNITS in SODIUM CHLORIDE 0.9% INJ 100 ML IV SCH (18:45)
[2017-06-19] MEDS ORDERED: SODIUM CHLORIDE 0.9% FLUSH 10 ML FLUSH IV FLUSH SCH (21:00)
[2017-06-20] MEDS: LACTATED RINGER'S 1000 ML INJ 1,000 ML IV SCH (00:41)
[2017-06-20] MEDS: ACETAMINOPHEN 325 MG TAB PO PRN ×3 (00:43→21:20)
[2017-06-20 08:00] VITALS: BP 113/80; PULSE 70; RESP 18; TEMP 97.8; O2SAT 97
[2017-06-20] MEDS: IBUPROFEN 800 MG TAB PO PRN (08:00)
--- NOTE | 2017-06-20 08:20 | HHI.OB ---
Subjective Post Day: 1 Remarks doing very well baby will be circumcised in [facility] home in am nursing well Objective Objective Remarks GENERAL: Well-nourished, well-developed patient. CARDIOVASCULAR: Regular rate and rhythm without murmurs, gallops, or rubs. RESPIRATORY: Breath sounds equal bilaterally. No accessory muscle use. ABDOMEN/GI: Abdomen soft, non-tender. Fundus: Firm, non-tender at umbilicus. GENITOURINARY: Light to moderate bleeding. EXTREMITIES: No cyanosis or edema, non-tender, without signs of DVT. Medications and IVs Current Medications Medications (Trade) Dose Ordered Sig/Juanito Route Start Time Stop Time Status Last Admin Lactated Ringer's 1,000 ml @ 125 mls/hr Q8H IV 06/19/17 14:37 06/19/17 14:57 Lactated Ringer's 1,000 ml @ 3,000 mls/hr Q20M PRN IV 06/19/17 14:37 Sodium Chloride 500 ml @ 1,000 mls/hr ONCE PRN IV 06/19/17 14:45 Sodium Chloride 1,000 ml @ 100 mls/hr Q10H PRN IV 06/19/17 14:57 (Xylocaine 1% Inj (50 ml)) 0.1 ml UNSCH X1 PRN I-DERMAL 06/19/17 14:45 06/22/17 14:44 (Bicitra Liq) 30 ml QUALITY ASSURANCE QA LAB TECHNICIAN PO 06/19/17 14:45 06/23/17 14:44 (Zofran Inj) 4 mg Q6H PRN IV PUSH 06/19/17 14:45 (fentaNYL INJ) 50 mcg Q1H PRN IV PUSH 06/19/17 14:45 (fentaNYL INJ) 100 mcg Q1H PRN IV PUSH 06/19/17 14:45 Penicillin G Potassium 2026160 units/Sodium Chloride 100 ml @ 200 mls/hr Q4H IV 06/19/17 18:45 (Xylocaine 1% Inj (50 ml)) 10 ml UNSCH X1 PRN INFIL 06/19/17 14:45 06/21/17 14:44 (Muri-Lube Oil) 10 ml UNSCH PRN TOPICAL 06/19/17 14:45 (NS Flush) 2 ml BID IV FLUSH 06/19/17 21:00 (NS Flush) 2 ml UNSCH PRN IV FLUSH 06/19/17 17:15 (Tylenol) 650 mg Q4H PRN PO 06/19/17 17:15 06/20/17 08:00 (Motrin) 800 mg Q8H PRN PO 06/19/17 17:15 06/20/17 08:00 (Americaine 20% Top Spr) 1 spray Q4H PRN TOPICAL 06/19/17 17:15 (Tucks Pads) 1 applic QID PRN TOPICAL 06/19/17 17:15 (Luz Elena-Colace) 2 tab Q12H PRN PO 06/19/17 17:15 (Ambien) 5 mg HS PRN PO 06/19/17 17:15 (Mag-Al Plus Susp Liq) 15 ml Q8H PRN PO 06/19/17 17:15 (Zofran Odt) 4 mg Q6H PRN PO 06/19/17 17:15 Assessment/Plan Problem List: (1) 39 weeks gestation of ICD Codes: Z3A.39 - 39 weeks gestation of Status: Acute (2) Uterine contractions during ICD Codes: O62.2 - Other uterine inertia Status: Acute Discharge Planning plan for discharge in Clarita Valentin MD Jun 20, 2017 08:20
[2017-06-20 20:00] VITALS: BP 118/81; PULSE 83; RESP 18; TEMP 98; O2SAT 98
[2017-06-21 08:00] VITALS: BP 104/61; PULSE 66; RESP 18; TEMP 98
[2017-06-21] MEDS ORDERED: IBUP1TAB7 PO (08:07)
--- NOTE | 2017-06-21 08:08 | HHI.DCPOC ---
Discharge Care Plan Diagnosis: (1) (spontaneous vaginal delivery) Your Health Problems Are: Vaginal delivery Report Symptoms to Your Doctor -Temperature above 100.5 degrees -Redness, of incision or excessive or foul smelling drainage -Unusual pain or calf pain -Increased vaginal bleeding -Painful or difficulty urinating -Feelings of extreme sadness or anxiety after 2 weeks Goals to Promote Your Health * To prevent worsening of your condition and complications * To maintain your health at the optimal level Directions to Meet Your Goals Take your medications as prescribed Follow your dietary instruction Follow activity as directed Ensure plenty of rest for recovery Drink fluids for hydration Keep your appointments as scheduled Take your immunizations and boosters as scheduled If your symptoms worsen call your PCP, if no PCP go to Urgent Care Center or Emergency Room Smoking is Dangerous to Your Health. Avoid second hand smoke Call the 24-hour crisis hotline for domestic abuse at Rita Wadsworth MD Jun 21, 2017 08:08
--- NOTE | 2017-06-21 08:11 | HHI.OB ---
Subjective Post Day: 2 Objective Vitals/I&O Vital Signs Date Time Temp Pulse Resp B/P (MAP) Pulse Ox O2 Delivery O2 Flow Rate FiO2 06/20/17 20:00 118/81 (93) 06/20/17 20:00 98.0 83 18 98 Objective Remarks GENERAL: Well-nourished, well-developed patient. CARDIOVASCULAR: Regular rate and rhythm without murmurs, gallops, or rubs. RESPIRATORY: Breath sounds equal bilaterally. No accessory muscle use. ABDOMEN/GI: Abdomen soft, non-tender. Fundus: Firm, non-tender at umbilicus. GENITOURINARY: Light bleeding. EXTREMITIES: No cyanosis or edema, non-tender, without signs of DVT. Medications and IVs Current Medications Medications (Trade) Dose Ordered Sig/Juanito Route Start Time Stop Time Status Last Admin Lactated Ringer's 1,000 ml @ 125 mls/hr Q8H IV 06/19/17 14:37 06/19/17 14:57 Lactated Ringer's 1,000 ml @ 3,000 mls/hr Q20M PRN IV 06/19/17 14:37 Sodium Chloride 500 ml @ 1,000 mls/hr ONCE PRN IV 06/19/17 14:45 Sodium Chloride 1,000 ml @ 100 mls/hr Q10H PRN IV 06/19/17 14:57 (Xylocaine 1% Inj (50 ml)) 0.1 ml UNSCH X1 PRN I-DERMAL 06/19/17 14:45 06/22/17 14:44 (Bicitra Liq) 30 ml CHIEF OF INTERNAL MEDICINE PO 06/19/17 14:45 06/23/17 14:44 (Zofran Inj) 4 mg Q6H PRN IV PUSH 06/19/17 14:45 (fentaNYL INJ) 50 mcg Q1H PRN IV PUSH 06/19/17 14:45 (fentaNYL INJ) 100 mcg Q1H PRN IV PUSH 06/19/17 14:45 Penicillin G Potassium 1314004 units/Sodium Chloride 100 ml @ 200 mls/hr Q4H IV 06/19/17 18:45 (Xylocaine 1% Inj (50 ml)) 10 ml UNSCH X1 PRN INFIL 06/19/17 14:45 06/21/17 14:44 (Muri-Lube Oil) 10 ml UNSCH PRN TOPICAL 06/19/17 14:45 (NS Flush) 2 ml BID IV FLUSH 06/19/17 21:00 (NS Flush) 2 ml UNSCH PRN IV FLUSH 06/19/17 17:15 (Tylenol) 650 mg Q4H PRN PO 06/19/17 17:15 06/20/17 21:20 (Motrin) 800 mg Q8H PRN PO 06/19/17 17:15 06/20/17 08:00 (Americaine 20% Top Spr) 1 spray Q4H PRN TOPICAL 06/19/17 17:15 (Tucks Pads) 1 applic QID PRN TOPICAL 06/19/17 17:15 (Luz Elena-Colace) 2 tab Q12H PRN PO 06/19/17 17:15 (Ambien) 5 mg HS PRN PO 06/19/17 17:15 (Mag-Al Plus Susp Liq) 15 ml Q8H PRN PO 06/19/17 17:15 (Zofran Odt) 4 mg Q6H PRN PO 06/19/17 17:15 Assessment/Plan Problem List: (1) (spontaneous vaginal delivery) ICD Codes: O80 - Encounter for full-term uncomplicated delivery (2) 39 weeks gestation of ICD Codes: Z3A.39 - 39 weeks gestation of Status: Acute (3) Uterine contractions during ICD Codes: O62.2 - Other uterine inertia Status: Acute Assessment and Plan PPD#2 routine care d/c to home Discharge Planning d/c today Rita Wadsworth MD Jun 21, 2017 08:10
[2017-06-21] MEDS: IBUPROFEN 800 MG TAB PO PRN (11:58)
[2017-06-21] MEDS: ACETAMINOPHEN 325 MG TAB PO PRN (11:58)
== END 2017-06-21 16:23 | disposition home or self-care (01) | DRG 775 ==
LOC: HOBED 13:43 → H2EB 14:17 → H1EA 17:56
PROVIDERS: ADMIT Obstetrics & Gynecology; ATTEND Obstetrics & Gynecology
PROC: 10E0XZZ Delivery of Products of Conception, External Approach (ICD-10-PCS; principal; 2017-06-19)
PROC: 10907ZC Drainage of Amniotic Fluid, Therapeutic from Products of Conception, Via Natural or Artificial Opening (ICD-10-PCS; 2017-06-19)
DX: O99.824 Streptococcus B carrier state complicating childbirth (principal); O69.81X0 Labor and delivery complicated by cord around neck, without compression, not applicable or unspecified; Z37.0 Single live birth; Z3A.39 39 weeks gestation of pregnancy; O66.0 Obstructed labor due to shoulder dystocia
CPT/HCPCS: 80307; 81001; 82805; 85025; 86900; 86901; J2540; J2590; J7120